=== PATIENT | male | born 1955 | race Caucasian/White ===

== ENCOUNTER 2018-07-15 10:06 | Inpatient (IN) ==
[2018-07-15] MEDS ORDERED: ceFAZolin 2 GM Premix Inj 2 GM/50 ML PIGGYBACK IV.SIG ONE (10:16)
[2018-07-15] MEDS ORDERED: Diphtheria/Tetanus/Pertussis Vaccine Inj 0.5 ML Syringe IM ONE (10:16)
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
[2018-07-15 10:32] LABS: Baso % (Auto) 0.4 % (0.0-2.0); Eos # (Auto) 0.4 th/mm3 (0.0-0.4); Eos % (Auto) 3.7 % (0.0-4.0); Hematocrit 40.5 % (39.0-51.0); Hemoglobin 13.5 gm/dL (13.0-17.0); Lymph # (Auto) 3.3 th/mm3 (1.0-4.8); Lymph % (Auto) 30.7 % (9.0-44.0); Mean Corpuscular HGB Conc 33.2 % (32.0-36.0); Mean Corpuscular Hemoglobin 31.1 pg (27.0-34.0); Mean Corpuscular Volume 93.7 fL (80.0-100.0); Mono # (Auto) 1.2 th/mm3 (0.0-0.9); Mono % (Auto) 10.8 % (0.0-8.0); Neut # (Auto) 5.9 th/mm3 (1.8-7.7); Neut % (Auto) 54.4 % (16.0-70.0); Platelet Count 231 th/mm3 (150-450); Red Blood Count 4.33 mil/mm3 (4.50-5.90); Red Cell Distribution Width 13.5 % (11.6-17.2); White Blood Count 10.8 th/mm3 (4.0-11.0)
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
[2018-07-15 10:50] LABS: Activated Partial Thrombo Time 26.6 sec (24.3-30.1); INR 1.1 Ratio; Prothrombin Time 10.7 sec (9.8-11.6)
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
[2018-07-15 12:11] LABS: Amphetamine Screen,Urine Neg (Neg); Barbiturate Screen,Urine Neg (Neg); Cannabinoid Screen,Urine Neg (Neg); Cocaine Screen,Urine Neg (Neg)
[2018-07-15 12:22] LABS: Opiate Screen,Urine Neg (Neg)
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
[2018-07-15] MEDS ORDERED: levETIRAcetam 500mg/100mL Inj 100 ML IV.SIG SCH (13:00)
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
[2018-07-15] MEDS: Famotidine 20 MG Tablet PO SCH (20:19)
[2018-07-15] MEDS: Docusate Sodium 100 MG Capsule PO SCH (20:22)
[2018-07-15] MEDS: Morphine Sulfate Inj 2 MG/ML Vial IV.PUSH PRN (23:32)
[2018-07-16] MEDS: Morphine Sulfate Inj 2 MG/ML Vial IV.PUSH PRN ×4 (02:15→21:32)
[2018-07-16] MEDS ORDERED: Chlorhexidine Gluconate 2% 1 Pack (2 Cloths) TOPICAL PRN (04:00)
[2018-07-16 04:14] LABS: Baso % (Auto) 0.4 % (0.0-2.0); Eos # (Auto) 0.5 th/mm3 (0.0-0.4); Eos % (Auto) 4.2 % (0.0-4.0); Hematocrit 38.9 % (39.0-51.0); Hemoglobin 12.8 gm/dL (13.0-17.0); Lymph # (Auto) 2.7 th/mm3 (1.0-4.8); Lymph % (Auto) 23.8 % (9.0-44.0); Mean Corpuscular Hemoglobin 30.9 pg (27.0-34.0); Mean Corpuscular Volume 93.4 fL (80.0-100.0); Mean Platelet Volume 9.5 fL (7.0-11.0); Mono # (Auto) 1.4 th/mm3 (0.0-0.9); Mono % (Auto) 11.9 % (0.0-8.0); Neut # (Auto) 6.8 th/mm3 (1.8-7.7); Neut % (Auto) 59.7 % (16.0-70.0); Platelet Count 239 th/mm3 (150-450); Red Blood Count 4.16 mil/mm3 (4.50-5.90); Red Cell Distribution Width 13.3 % (11.6-17.2); White Blood Count 11.4 th/mm3 (4.0-11.0)
[2018-07-16 04:36] LABS: Albumin 3.1 g/dL (3.4-5.0); Anion Gap 6 meq/L (5-15); Aspartate Aminotransferase 27 U/L (15-37); Blood Urea Nitrogen 20 mg/dL (7-18); Calcium 8.3 mg/dL (8.5-10.1); Carbon Dioxide 26.8 meq/L (21.0-32.0); Chloride 108 meq/L (98-107); Glomerular Filtration Rate 84 mL/min (>89); Glucose,Random 105 mg/dL (74-106); Potassium 4.2 meq/L (3.5-5.1); Sodium 141 meq/L (136-145)
[2018-07-16 04:37] LABS: Alanine Aminotransferase 37 U/L (12-78)
[2018-07-16 04:39] LABS: Alkaline Phosphatase 45 U/L (45-117); Total Protein 5.9 g/dL (6.4-8.2)
--- NOTE | 2018-07-16 04:45 | CT ---
EXAM DATE: 07/16/2018 4:38 AM EDT AGE/SEX: 62 years / Male INDICATIONS: Trauma; head injury. CLINICAL DATA: This is the patient's initial encounter. Patient reports that signs and symptoms have been present for 1 day and indicates a pain score of Nonresponsive. MEDICAL/SURGICAL HISTORY: Non-responsive. Non-responsive. RADIATION DOSE: 38.78 CTDI (mGy) COMPARISON: [facility] [place], CT HEAD W/O CONTRAST, 07/15/2018. . TECHNIQUE: CT of the head without contrast. Using automated exposure control and adjustment of the mA and/or kV according to patient size, radiation dose was kept as low as reasonably achievable to ob tain optimal diagnostic quality images. DICOM format image data is available electronically for revi ew and comparison. FINDINGS: Cerebrum: Cerebral atrophy with frontotemporal predominance is again seen. Previously identified pos sible acute hemorrhage in the para midline high frontal region is no longer seen. The ventricles are normal for age. No evidence of midline shift, mass lesion, hemorrhage or acute infarction. No extra axial fluid collections are seen. Posterior Fossa: The cerebellum and brainstem are intact. The 4th ventricle is midline. The cerebe llopontine angle is unremarkable. Extracranial: Marked preorbital and premaxillary soft tissue edema on the left with hematoma seen in the premaxillary region. Skull: The calvaria is intact. No evidence of skull fracture. CONCLUSION: 1. Para midline subarachnoid hemorrhage in the frontal region no longer seen. 2. Severe left-sided anterior facial soft tissue swelling/hematoma. . Electronically signed by: Kyle Trejo MD 07/16/2018 4:44 AM EDT
[2018-07-16] MEDS: Chlorhexidine Gluconate 2% 1 Pack (2 Cloths) TOPICAL SCH (06:10)
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
[2018-07-16] MEDS: Divalproex 500 MG DR Tablet PO SCH (09:45)
[2018-07-16] MEDS: Lurasidone 80 MG Tablet PO SCH (09:45)
[2018-07-16] MEDS: Docusate Sodium 100 MG Capsule PO SCH ×2 (09:45→21:32)
[2018-07-16] MEDS: Famotidine 20 MG Tablet PO SCH ×2 (09:45→21:32)
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
[2018-07-17 03:55] LABS: Baso # (Auto) 0.1 th/mm3 (0.0-0.2); Baso % (Auto) 0.6 % (0.0-2.0); Eos # (Auto) 0.5 th/mm3 (0.0-0.4); Eos % (Auto) 4.8 % (0.0-4.0); Hematocrit 37.6 % (39.0-51.0); Hemoglobin 12.6 gm/dL (13.0-17.0); Lymph # (Auto) 3.3 th/mm3 (1.0-4.8); Lymph % (Auto) 29.7 % (9.0-44.0); Mean Corpuscular HGB Conc 33.6 % (32.0-36.0); Mean Corpuscular Hemoglobin 31.1 pg (27.0-34.0); Mean Corpuscular Volume 92.5 fL (80.0-100.0); Mean Platelet Volume 9.4 fL (7.0-11.0); Mono # (Auto) 1.4 th/mm3 (0.0-0.9); Mono % (Auto) 12.8 % (0.0-8.0); Neut # (Auto) 5.8 th/mm3 (1.8-7.7); Neut % (Auto) 52.1 % (16.0-70.0); Platelet Count 215 th/mm3 (150-450); Red Blood Count 4.06 mil/mm3 (4.50-5.90); Red Cell Distribution Width 13.5 % (11.6-17.2); White Blood Count 11.1 th/mm3 (4.0-11.0)
[2018-07-17 04:15] LABS: Alanine Aminotransferase 30 U/L (12-78); Anion Gap 6 meq/L (5-15); Aspartate Aminotransferase 19 U/L (15-37); Blood Urea Nitrogen 19 mg/dL (7-18); Calcium 8.2 mg/dL (8.5-10.1); Carbon Dioxide 26.5 meq/L (21.0-32.0); Chloride 105 meq/L (98-107); Glomerular Filtration Rate 84 mL/min (>89); Glucose,Random 132 mg/dL (74-106); Sodium 137 meq/L (136-145)
[2018-07-17 04:18] LABS: Alkaline Phosphatase 42 U/L (45-117)
[2018-07-17 04:23] VITALS: O2SAT 99
[2018-07-17] MEDS ORDERED: Acetaminophen 325 MG Tablet PO PRN (05:42)
[2018-07-17] MEDS: Chlorhexidine Gluconate 2% 1 Pack (2 Cloths) TOPICAL SCH (05:54)
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
[2018-07-17] MEDS: Divalproex 500 MG DR Tablet PO SCH (09:28)
[2018-07-17] MEDS: Famotidine 20 MG Tablet PO SCH (09:28)
[2018-07-17] MEDS: Lurasidone 80 MG Tablet PO SCH (09:29)
[2018-07-17] MEDS: Docusate Sodium 100 MG Capsule PO SCH (09:29)
[2018-07-17 09:57] VITALS: PULSE 88
[2018-07-17 10:05] VITALS: BP 139/71; RESP 16; TEMP 98.8
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
== END 2018-07-17 11:57 ==
LOC: NEPI 10:06 → NEDA 10:52 → EDBD 10:52 → N03 12:12
PROVIDERS: ADMIT Surgery; ATTEND Surgery

== ENCOUNTER 2018-07-17 12:05 | Inpatient (IN) ==
[2018-07-17] MEDS ORDERED: Bisacodyl 10 MG Supp RECTAL PRN (14:42)
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
[2018-07-17] MEDS: Lurasidone 80 MG Tablet PO SCH (15:59)
[2018-07-17] MEDS: Divalproex 500 MG DR Tablet PO SCH (15:59)
[2018-07-17] MEDS: Acetaminophen 325 MG Tablet PO PRN ×2 (15:59→20:33)
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
[2018-07-17] MEDS: Senna/Docusate Sodium 8.6/50 MG Tablet PO SCH (20:32)
[2018-07-18] MEDS: Acetaminophen 325 MG Tablet PO PRN ×4 (01:19→21:37)
[2018-07-18] MEDS: Lurasidone 80 MG Tablet PO SCH (08:17)
[2018-07-18] MEDS: Divalproex 500 MG DR Tablet PO SCH (08:17)
[2018-07-18] MEDS: Senna/Docusate Sodium 8.6/50 MG Tablet PO SCH ×2 (08:18→21:37)
[2018-07-18 08:26] LABS: Anion Gap 8 meq/L (5-15); Blood Urea Nitrogen 22 mg/dL (7-18); Calcium 8.9 mg/dL (8.5-10.1); Carbon Dioxide 25.1 meq/L (21.0-32.0); Chloride 106 meq/L (98-107); Glomerular Filtration Rate Greater Than 89 mL/min (>89); Glucose,Random 148 mg/dL (74-106); Sodium 139 meq/L (136-145)
[2018-07-18 08:28] LABS: Cholesterol 90 mg/dL (120-200); Triglycerides 252 mg/dL (42-150)
[2018-07-18 08:31] LABS: Chol/HDL Ratio 2.97 Ratio; HDL Cholesterol 30.3 mg/dL (40.0-60.0); LDL Cholesterol,Calculated 9 mg/dL (0-99)
[2018-07-18] MEDS ORDERED: Sodium Chloride 0.65% Nasal Spray 45 ML Bottle EACH NARE PRN (11:17)
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
[2018-07-18] MEDS ORDERED: Haloperidol 5 MG Tablet PO STA (15:38)
[2018-07-18] MEDS ORDERED: LORazepam 1 MG Tablet PO STA (15:38)
[2018-07-18 16:09] LABS: Hemoglobin A1c 6.5 % (4.3-6.0)
[2018-07-18] MEDS ORDERED: LORazepam 1 MG Tablet PO ONE (16:15)
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
--- NOTE | 2018-07-18 17:38 | P.PNWCN ---
Wound Care Nurse Consult Description: wound consult ordered by for wound management. Communicated with: Candis BERRY. Recommendation: Cleanse bilateral upper extremities with warm soap and water rinse pat dry and leave open to air.May apply triple antibiotic ointment if requested by patient. Additional information: full note top follow Wound/Pressure Injury - Wound Left Ankle Wound Type: Abrasion Left Arm Wound Type: Abrasion Right Arm Wound Type: Abrasion
[2018-07-19] MEDS: Acetaminophen 325 MG Tablet PO PRN ×2 (02:42→08:57)
[2018-07-19] MEDS: Divalproex 500 MG DR Tablet PO SCH (08:58)
[2018-07-19] MEDS: Lurasidone 80 MG Tablet PO SCH (08:58)
[2018-07-19] MEDS: Senna/Docusate Sodium 8.6/50 MG Tablet PO SCH ×2 (08:59→20:23)
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
--- NOTE | 2018-07-19 15:42 | P.PNPSY ---
Subjective Remarks: Patient seen and lubin with nurse Nina, medical student Carolee. Chart reviewed. Patient compliant medication. Patient continues with somewhat labile mood distractible though redirectable. We will check patient's Depakote blood level over in a.m. We are still somewhat vague about his allergy status but need to attempt to contact his brother hopefully get more information Review of Systems All other systems reviewed negative except as stated in HPI Mental Status Examination Appearance: Dirty, Disheveled, Other (Black left eye) Consciousness: Alert Orientation: x4 Motor Activity: Normal gait Speech: Unremarkable Language: Adequate Fund of Knowledge: Adequate Attention and Concentration: Adequate Memory: Unremarkable Mood: Irritable, Manic Affect: Irritable, Other (In appropriate) Thought Process & Associations: Loose associations, Disorganized Thought Content: Bizarre thinking Hallucination Type: None Delusion Type: Bizarre, Paranoid Suicidal Ideation: No Suicidal Plan: No Suicidal Intention: No Homicidal Ideation: No Homicidal Plan: No Homicidal Intention: No Insight: Poor Judgment: Poor Assessment and Plan - Assessment (1) 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 Redirectable. We will be checking Depakote blood level over in a.m. Justification for Continued Inpatient Stay: At this time patient would decompensate a place to a lower level of care Discharge Planning: To be determined (2) Schizoaffective disorder Qualifiers: Schizoaffective disorder type: bipolar Qualified Code(s): F25.0 - Schizoaffective disorder, bipolar type
[2018-07-20] MEDS: Acetaminophen 325 MG Tablet PO PRN ×3 (02:03→16:40)
[2018-07-20] MEDS: Divalproex 500 MG DR Tablet PO SCH (08:19)
[2018-07-20] MEDS: Lurasidone 80 MG Tablet PO SCH (08:19)
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
[2018-07-20] MEDS: Senna/Docusate Sodium 8.6/50 MG Tablet PO SCH ×2 (16:29→20:01)
--- NOTE | 2018-07-20 16:51 | P.PNPSY ---
Subjective Remarks: Reviewed electronic medical records and discussed case with staff. Follow-up was conducted in the hallway with JAMAL Mae present. Is reported that patient refused labs this morning so we will attempt to recollect them in the morning for a valproic acid level. His nurse reports he has been making bizarre statements but compliant with medications. When asked how he feels today patient states "I am in pain". He then becomes extremely bizarre stating that he once had a friend named "Judah mobleys". He then proceeds to say "I am Dr. bonnie hudson, er-er" as he motions with one arm like like an axe. Mental Status Examination Appearance: Dirty, Disheveled, Other (Black left eye) Consciousness: Alert Orientation: x4 Motor Activity: Normal gait Speech: Unremarkable Language: Adequate Fund of Knowledge: Adequate Attention and Concentration: Adequate Memory: Unremarkable Mood: Irritable, Manic Affect: Irritable, Other (In appropriate) Thought Process & Associations: Loose associations, Disorganized Thought Content: Bizarre thinking Hallucination Type: None Delusion Type: Bizarre, Paranoid Suicidal Ideation: No Suicidal Plan: No Suicidal Intention: No Homicidal Ideation: No Homicidal Plan: No Homicidal Intention: No Insight: Poor Judgment: Poor Assessment and Plan - Assessment (1) 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 Continue with current treatment plan. Justification for Continued Inpatient Stay: Moving this patient to a less restrictive environment would likely result in decompensation.
[2018-07-21] MEDS: Acetaminophen 325 MG Tablet PO PRN (04:46)
[2018-07-21] MEDS: Lurasidone 80 MG Tablet PO SCH (08:58)
[2018-07-21] MEDS: Senna/Docusate Sodium 8.6/50 MG Tablet PO SCH ×2 (08:58→20:53)
[2018-07-21] MEDS: Divalproex 500 MG DR Tablet PO SCH (08:58)
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
[2018-07-21] MEDS: Ibuprofen 600 MG Tablet PO PRN ×2 (13:05→20:55)
--- NOTE | 2018-07-21 15:24 | P.PNPSY ---
Subjective Remarks: Reviewed electronic medical records and discussed case with staff. Follow-up was conducted in the common area with JAMAL Chirinos present. Patient is very confused. He states that his brother picked up his scooter. He states that he does not have a good relationship with his brother. He told the nurse to take down the elopement sign because he does not want to any one. Later he stated that [facility] and the [facility] are here. He is easily redirect and very kind. He states he lives in an apt by himself. His left eye is very swollen and painful, but the swelling is resolving. Review of Systems All other systems reviewed negative except as stated in HPI Comments: Eye is extremely swollen. Mental Status Examination Appearance: Appropriate, Dirty, Other (Black left eye) Consciousness: Alert Orientation: x4 Motor Activity: Normal gait Speech: Unremarkable Language: Adequate Fund of Knowledge: Adequate Attention and Concentration: Adequate Memory: Unremarkable Mood: Appropriate Affect: Appropriate Thought Process & Associations: Loose associations, Disorganized Thought Content: Bizarre thinking Hallucination Type: None Delusion Type: Bizarre, Paranoid Suicidal Ideation: No Suicidal Plan: No Suicidal Intention: No Homicidal Ideation: No Homicidal Plan: No Homicidal Intention: No Insight: Poor Judgment: Poor Assessment and Plan - Assessment (1) Schizoaffective disorder Code(s): F25.9 - Schizoaffective disorder, unspecified Status: Acute - Plan Plan: Patient will be reevaluated Sunday by the attending psychiatrist. Continue with current treatment plan. Justification for Continued Inpatient Stay: Moving patient to a less restrictive environment may result in his decompensation. (1) Schizoaffective disorder Qualifiers: Schizoaffective disorder type: bipolar Qualified Code(s): F25.0 - Schizoaffective disorder, bipolar type
[2018-07-22] MEDS: Senna/Docusate Sodium 8.6/50 MG Tablet PO SCH ×2 (08:11→20:13)
[2018-07-22] MEDS: Divalproex 500 MG DR Tablet PO SCH (08:11)
[2018-07-22] MEDS: Ibuprofen 600 MG Tablet PO PRN ×2 (08:12→15:43)
[2018-07-22] MEDS: Lurasidone 80 MG Tablet PO SCH (08:12)
--- NOTE | 2018-07-22 08:55 | P.TTN ---
- Patient Problems Problems: 1. Discharge planning 2. Medication compliance 3. Knowledge deficit 4. Lack of coping skills - Progress Toward Goals Provider Present: Dr. Mona Bhakta (Dr. Bhakta is titrating medications, patient remains psychotic and needs further stabilization.) Psychiatric Counselors Present: Hong Dunn Jr., [facility] (Hong establish contact with the patient's brother regarding discharge plan. Brother Jorge Alberto Weston is advocating for state hospitalization. Brother reports he will be in attendance at [place] act [place] this week to advocate for state hospitalization.) Group Spec/RT/OT/FRAGA Present: PHILLY Davalos (Patient attends select groups , does not tolerate social activities well) - Documentation Teaching Recipient: Patient
--- NOTE | 2018-07-22 15:35 | P.PNPSY ---
Subjective Remarks: Patient seen and lubin with nurse Jasmyn. Patient quite intrusive, intense, with intense eye contact. He is upon review of patient's history of recidivism poor compliance medication I feel he would benefit from long-term placement. We will start state referral packet intrusive with poor hygiene and somewhat malodorous. Depakote level drawn yesterday came back at 20. We will increase Depakote from 1000 mg daily to 500 mg extended release in the morning and 750 mg in the evening. Recheck Depakote blood level over on about 07/25 Review of Systems All other systems reviewed negative except as stated in HPI Mental Status Examination Appearance: Appropriate, Dirty, Other (Black left eye) Consciousness: Alert Orientation: x4 Motor Activity: Normal gait Speech: Unremarkable Language: Adequate Fund of Knowledge: Adequate Attention and Concentration: Adequate Memory: Unremarkable Mood: Appropriate Affect: Appropriate Thought Process & Associations: Loose associations, Disorganized Thought Content: Bizarre thinking Hallucination Type: None Delusion Type: Bizarre, Paranoid Suicidal Ideation: No Suicidal Plan: No Suicidal Intention: No Homicidal Ideation: No Homicidal Plan: No Homicidal Intention: No Insight: Poor Judgment: Poor Assessment and Plan - Assessment (1) 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 He is intense with little insight. Now demanding to go to [place]. Reviewing of patient's behaviors and recidivism I will start the state referral packet Justification for Continued Inpatient Stay: At this time patient would decompensate if placed in a lower level of care Discharge Planning: Start state referral packet (2) Schizoaffective disorder Qualifiers: Schizoaffective disorder type: bipolar Qualified Code(s): F25.0 - Schizoaffective disorder, bipolar type
[2018-07-22] MEDS: Divalproex 250 MG ER Tablet PO SCH (20:13)
[2018-07-23] MEDS: Ibuprofen 600 MG Tablet PO PRN ×2 (03:01→15:37)
[2018-07-23] MEDS: Senna/Docusate Sodium 8.6/50 MG Tablet PO SCH ×2 (09:21→20:33)
[2018-07-23] MEDS: Lurasidone 80 MG Tablet PO SCH (09:21)
[2018-07-23] MEDS: Divalproex 500 MG ER Tablet PO SCH (09:21)
[2018-07-23] MEDS: Acetaminophen 325 MG Tablet PO PRN (09:22)
--- NOTE | 2018-07-23 10:02 | P.PNPSY ---
Subjective Remarks: Patient seen and lubin with nurse and medical student Breonna. Chart reviewed. Patient continues intrusive loud demanding markedly delusional. Does feel like people are conspiring and spying on him. He continues to feel that the hospital beds are transporters similar to those of the TV show [employer]. There is also been communication with patient's brother. Patient has been doing significant frequent intrusive phone calls to him. The brother request phone restrictions. I will do that the place phone restriction as outpatient. I feel also that the Latuda is not very efficient with this gentleman. We will discontinue the Latuda and start patient on in Wood 6 mg daily with possible addition of in Wood sustain a in a few days. Continue to await the Depakote blood level on 07/25 Review of Systems All other systems reviewed negative except as stated in HPI Mental Status Examination Appearance: Appropriate, Dirty, Other (Black left eye) Consciousness: Alert Orientation: x4 Motor Activity: Normal gait Speech: Unremarkable Language: Adequate Fund of Knowledge: Adequate Attention and Concentration: Adequate Memory: Unremarkable Mood: Appropriate Affect: Appropriate Thought Process & Associations: Loose associations, Disorganized Thought Content: Bizarre thinking Hallucination Type: None Delusion Type: Bizarre, Paranoid Suicidal Ideation: No Suicidal Plan: No Suicidal Intention: No Homicidal Ideation: No Homicidal Plan: No Homicidal Intention: No Insight: Poor Judgment: Poor Assessment and Plan - Assessment (1) 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 With a grandiose flavor. She medication adjustments above and phone restrictions above Justification for Continued Inpatient Stay: At this time patient would decompensate a place to a lower level of care Discharge Planning: [facility] packet is being sent (2) Schizoaffective disorder Qualifiers: Schizoaffective disorder type: bipolar Qualified Code(s): F25.0 - Schizoaffective disorder, bipolar type
[2018-07-23] MEDS: Divalproex 250 MG ER Tablet PO SCH (20:33)
[2018-07-24] MEDS: Divalproex 500 MG ER Tablet PO SCH (09:00)
[2018-07-24] MEDS: Senna/Docusate Sodium 8.6/50 MG Tablet PO SCH ×2 (09:01→20:33)
[2018-07-24] MEDS: Ibuprofen 600 MG Tablet PO PRN ×3 (09:15→22:05)
--- NOTE | 2018-07-24 09:22 | P.TTN ---
- Patient Problems Problems: 1. Discharge planning 2. Medication compliance 3. Knowledge deficit 4. Lack of coping skills - Progress Toward Goals Provider Present: Dr. Mona Bhakta (Dr. Bhakta is titrating medications, patient remains psychotic and needs further stabilization. July 24, 2018 patient is agitated, angry and has been referred to the [facility] for further stabilization) Psychiatric Counselors Present: Hong Dunn Jr., [facility] (Hong establish contact with the patient's brother regarding discharge plan. Brother Jorge Alberto Weston is advocating for state hospitalization. Brother reports he will be in attendance at [employer] [facility] this week to advocate for state hospitalization. July 24, 2018 counselor is working with the patient's brother and sister to advocate for further stabilization with a long-term plan of seeking placement at the [facility]. Patient appears to be at rest for self-harm or harm to others if he were to be discharged into the community) Group Spec/RT/OT/FRAGA Present: MAME Hodges (Patient does not attend groups, patient is not appropriate and has difficulty being redirected at this time.), PHILLY Davalos (Patient attends select groups, does not tolerate social activities well) - Documentation Teaching Recipient: Patient
--- NOTE | 2018-07-24 11:24 | P.PNPSY ---
Subjective Remarks: Patient is seen in the lubin with RN. Chart reviewed. Patient compliant medication. Patient continues quite psychotic delusional paranoid intrusive with no insight. He continues to be quite intrusive with his family members needing a telephone restriction order placed yesterday. Though he has no insight into that continues to need to be redirected. Patient scheduled for oneforty tomorrow Review of Systems All other systems reviewed negative except as stated in HPI Mental Status Examination Appearance: Appropriate, Dirty, Other (Black left eye) Consciousness: Alert Orientation: x4 Motor Activity: Normal gait Speech: Unremarkable Language: Adequate Fund of Knowledge: Adequate Attention and Concentration: Adequate Memory: Unremarkable Mood: Appropriate Affect: Appropriate Thought Process & Associations: Loose associations, Disorganized Thought Content: Bizarre thinking Hallucination Type: None Delusion Type: Bizarre, Paranoid Suicidal Ideation: No Suicidal Plan: No Suicidal Intention: No Homicidal Ideation: No Homicidal Plan: No Homicidal Intention: No Insight: Poor Judgment: Poor Assessment and Plan - Assessment (1) 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 Compliant medications. Patient scheduled for oneforty tomorrow Justification for Continued Inpatient Stay: At this time patient would decompensate a place to a lower level of care Discharge Planning: Continue to await word from [facility] referral (2) Schizoaffective disorder Qualifiers: Schizoaffective disorder type: bipolar Qualified Code(s): F25.0 - Schizoaffective disorder, bipolar type
[2018-07-24] MEDS: Acetaminophen 325 MG Tablet PO PRN (14:41)
[2018-07-24] MEDS: Divalproex 250 MG ER Tablet PO SCH (20:33)
[2018-07-25] MEDS: Acetaminophen 325 MG Tablet PO PRN (00:25)
[2018-07-25] MEDS: Ibuprofen 600 MG Tablet PO PRN ×2 (05:56→12:11)
[2018-07-25] MEDS: Divalproex 500 MG ER Tablet PO SCH (08:49)
[2018-07-25] MEDS: Senna/Docusate Sodium 8.6/50 MG Tablet PO SCH ×2 (08:49→21:08)
--- NOTE | 2018-07-25 12:17 | P.PNPSY ---
Subjective Remarks: Patient is seen in [place] today. Patient's brother also testified. Patient was retained by Sarbjit Martínez with brother to be guardian advocate. Patient's anger paranoia and delusions are quite evident in the court setting. He showed marked anger towards his brother with absolutely no insight into his disease. Patient compliant with medications. We will continue to await word on the Depakote blood level. For now continue treatment no change we continue also to await word from [facility] referral Review of Systems All other systems reviewed negative except as stated in HPI Mental Status Examination Appearance: Appropriate, Dirty, Other (Black left eye) Consciousness: Alert Orientation: x4 Motor Activity: Normal gait Speech: Unremarkable Language: Adequate Fund of Knowledge: Inadequate Attention and Concentration: Adequate Memory: Impaired Mood: Angry, Irritable, Manic (Mildly) Affect: Other (Increased range and intensity) Thought Process & Associations: Loose associations, Disorganized Thought Content: Bizarre thinking Hallucination Type: None Delusion Type: Bizarre, Paranoid Suicidal Ideation: No Suicidal Plan: No Suicidal Intention: No Homicidal Ideation: No Homicidal Plan: No Homicidal Intention: No Insight: Poor Judgment: Poor Assessment and Plan - Assessment (1) 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 Justification for Continued Inpatient Stay: At this time patient would decompensate a place to a lower level of care Discharge Planning: to be determined (2) Schizoaffective disorder Qualifiers: Schizoaffective disorder type: bipolar Qualified Code(s): F25.0 - Schizoaffective disorder, bipolar type
[2018-07-25] MEDS: Divalproex 250 MG ER Tablet PO SCH (21:08)
[2018-07-26] MEDS: Acetaminophen 325 MG Tablet PO PRN (05:58)
[2018-07-26] MEDS: Ibuprofen 600 MG Tablet PO PRN ×2 (06:03→16:13)
[2018-07-26] MEDS: Senna/Docusate Sodium 8.6/50 MG Tablet PO SCH ×2 (09:14→20:04)
[2018-07-26] MEDS: Divalproex 500 MG ER Tablet PO SCH (09:14)
--- NOTE | 2018-07-26 12:40 | P.PNPSY ---
Subjective Remarks: Patient seen and lubin with medical student Carolee, chart reviewed, patient compliant medication. Patient continues manic delusional and tense and vigilant. It appears she did not get his Depakote blood level drawn yesterday morning we will order again for tomorrow morning. We will increase his in Wood orally to 9 mg daily. Also cautioned patient to not touch the hematoma under his left lower orbit and the abrasions on the dorsum of his hands. There remains a high instructed to monitor carefully and keep the wounds as clean as possible Review of Systems All other systems reviewed negative except as stated in HPI Mental Status Examination Appearance: Appropriate, Dirty, Other (Black left eye) Consciousness: Alert Orientation: x4 Motor Activity: Normal gait Speech: Unremarkable Language: Adequate Fund of Knowledge: Inadequate Attention and Concentration: Adequate Memory: Impaired Mood: Angry, Irritable, Manic (Mildly) Affect: Other (Increased range and intensity) Thought Process & Associations: Loose associations, Disorganized Thought Content: Bizarre thinking Hallucination Type: None Delusion Type: Bizarre, Paranoid Suicidal Ideation: No Suicidal Plan: No Suicidal Intention: No Homicidal Ideation: No Homicidal Plan: No Homicidal Intention: No Insight: Poor Judgment: Poor Assessment and Plan - Assessment (1) 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 Also showing no insight into the need to not manipulate the abrasions on his hands are of the hematoma on his face Justification for Continued Inpatient Stay: At this time patient would decompensate a place a lower level of care state referral packet has been sent see medication adjustment above Discharge Planning: Continue to await word on state referral packet Request Healthcare Surrogate/Guardian Advocate?: Yes (2) Schizoaffective disorder Qualifiers: Schizoaffective disorder type: bipolar Qualified Code(s): F25.0 - Schizoaffective disorder, bipolar type
[2018-07-26] MEDS: LORazepam 1 MG Tablet PO SCH (19:56)
[2018-07-26] MEDS: Divalproex 250 MG ER Tablet PO SCH (20:04)
[2018-07-27] MEDS: Ibuprofen 600 MG Tablet PO PRN ×2 (00:26→13:09)
[2018-07-27] MEDS: Acetaminophen 325 MG Tablet PO PRN (02:59)
[2018-07-27] MEDS: LORazepam 1 MG Tablet PO SCH ×3 (08:37→17:43)
[2018-07-27] MEDS: Divalproex 500 MG ER Tablet PO SCH (08:39)
[2018-07-27] MEDS: Senna/Docusate Sodium 8.6/50 MG Tablet PO SCH ×2 (13:10→20:39)
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
[2018-07-27] MEDS: Divalproex 250 MG ER Tablet PO SCH (20:39)
[2018-07-28] MEDS: Ibuprofen 600 MG Tablet PO PRN ×2 (09:58→20:29)
[2018-07-28] MEDS: Divalproex 250 MG ER Tablet PO SCH ×3 (10:01→20:28)
[2018-07-28] MEDS: LORazepam 1 MG Tablet PO SCH ×3 (10:01→18:58)
[2018-07-28] MEDS: Senna/Docusate Sodium 8.6/50 MG Tablet PO SCH ×2 (10:08→20:28)
--- NOTE | 2018-07-28 19:07 | P.PNPSY ---
Subjective Remarks: Reviewed electronic medical records and discussed case with staff. Follow-up was conducted in the hallway. Patient remains diffusely confused and intrusive. He continues to perseverate and confabulate. He is difficult to redirect verbally. I hesitate to increase his medications at this time as both his Depakote and in Wood have just recently been increased. Mental Status Examination Appearance: Appropriate, Dirty, Other (Black left eye) Consciousness: Alert Orientation: x4 Motor Activity: Normal gait Speech: Unremarkable Language: Adequate Fund of Knowledge: Inadequate Attention and Concentration: Adequate Memory: Impaired Mood: Angry, Irritable, Manic (Mildly) Affect: Other (Increased range and intensity) Thought Process & Associations: Loose associations, Disorganized Thought Content: Bizarre thinking Hallucination Type: None Delusion Type: Bizarre, Paranoid Suicidal Ideation: No Suicidal Plan: No Suicidal Intention: No Homicidal Ideation: No Homicidal Plan: No Homicidal Intention: No Insight: Poor Judgment: Poor Assessment and Plan - Assessment (1) 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 Continue with current treatment plan. Justification for Continued Inpatient Stay: Moving this patient to a less restrictive environment would likely result in decompensation. Request Healthcare Surrogate/Guardian Advocate?: Yes
[2018-07-29] MEDS: LORazepam 1 MG Tablet PO SCH ×3 (08:51→18:11)
[2018-07-29] MEDS: Divalproex 250 MG ER Tablet PO SCH ×2 (08:51→20:38)
[2018-07-29] MEDS: Senna/Docusate Sodium 8.6/50 MG Tablet PO SCH ×2 (08:51→20:38)
[2018-07-29] MEDS: Ibuprofen 600 MG Tablet PO PRN (13:28)
--- NOTE | 2018-07-29 15:20 | P.PNPSY ---
Subjective Remarks: Patient is seen today in his room with RN and student Carolee, chart reviewed, patient discussed with nurse it appears patient has had 2 incidents of defecating on the floor in the bathroom and in the lubin and then smearing the fecal material on the farrell. Patient is seen today in his room he continues markedly delusional paranoid intense stating he had to do it. At this time I feel the patient's oral antipsychotic and Wood is not really benefiting this gentleman. We will discontinue the in Wood and add Thorazine 50 mg 3 times daily to the regimen Review of Systems All other systems reviewed negative except as stated in HPI Mental Status Examination Appearance: Appropriate, Dirty, Other (Black left eye) Consciousness: Alert Orientation: x4 Motor Activity: Normal gait Speech: Pressured, Rapid Language: Adequate Fund of Knowledge: Inadequate Attention and Concentration: Adequate Memory: Impaired Mood: Angry, Irritable, Manic (Mildly) Affect: Other (Increased range and intensity) Thought Process & Associations: Loose associations, Disorganized Thought Content: Bizarre thinking Hallucination Type: None Delusion Type: Bizarre, Paranoid Suicidal Ideation: No Suicidal Plan: No Suicidal Intention: No Homicidal Ideation: No Homicidal Plan: No Homicidal Intention: No Insight: Poor Judgment: Poor Assessment and Plan - Assessment (1) 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 We will continue to await word from state [facility] Justification for Continued Inpatient Stay: At this time patient would decompensate a place to a lower level of care Discharge Planning: To be determined continue to await state referral Request Healthcare Surrogate/Guardian Advocate?: Yes (2) Schizoaffective disorder Qualifiers: Schizoaffective disorder type: bipolar Qualified Code(s): F25.0 - Schizoaffective disorder, bipolar type
[2018-07-29] MEDS: ChlorproMAZINE 50 MG Tablet PO SCH (18:10)
[2018-07-30] MEDS ORDERED: Chlorpromazine Inj 50 MG/2 ML Ampule IM ONE (00:30)
[2018-07-30] MEDS: ChlorproMAZINE 50 MG Tablet PO SCH ×3 (08:30→17:50)
[2018-07-30] MEDS: LORazepam 1 MG Tablet PO SCH ×3 (08:55→17:49)
[2018-07-30] MEDS: Senna/Docusate Sodium 8.6/50 MG Tablet PO SCH (08:56)
[2018-07-30] MEDS: Divalproex 250 MG ER Tablet PO SCH ×2 (08:56→21:19)
[2018-07-30] MEDS ORDERED: Haloperidol Inj 5 MG/ML Ampul IM ONE (10:59)
[2018-07-30] MEDS ORDERED: Haloperidol Inj 5 MG/ML Ampul ONE (11:06)
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
[2018-07-30] MEDS: Chlorpromazine Inj 50 MG/2 ML Ampule IM SCH (21:47)
[2018-07-31] MEDS: Divalproex 250 MG ER Tablet PO SCH ×2 (08:20→21:20)
[2018-07-31] MEDS: ChlorproMAZINE 50 MG Tablet PO SCH ×3 (08:20→17:53)
[2018-07-31] MEDS: LORazepam 1 MG Tablet PO SCH ×3 (08:21→17:56)
[2018-07-31] MEDS: Chlorpromazine Inj 50 MG/2 ML Ampule IM SCH ×2 (08:27→22:25)
--- NOTE | 2018-07-31 12:40 | P.TTN ---
- Patient Problems Problems: 1. Discharge planning 2. Medication compliance 3. Knowledge deficit 4. Lack of coping skills - Progress Toward Goals Provider Present: Dr. Mona Bhakta (Dr. Bhakta is titrating medications, patient remains psychotic and needs further stabilization. July 24, 2018 patient is agitated, angry and has been referred to the [facility] for further stabilization) Provider Input: 07/31/2018 per doctor, patient continues to display psychotic and noncompliant behavior. Patient still require medication stabilization. Nurse(s) Present: RN Nurse Input: 07/31/2018; per RN patient continues to be inappropriate, with aggressive behavior. Patient is taking selective medication, and require coaching and prompting for compliance. Psychiatric Counselors Present: Hong Dunn Jr., [facility] (Hong establish contact with the patient's brother regarding discharge plan. Brother Jorge Alberto Weston is advocating for state hospitalization. Brother reports he will be in attendance at [place] [facility] this week to advocate for state hospitalization. July 24, 2018 counselor is working with the patient's brother and sister to advocate for further stabilization with a long-term plan of seeking placement at the [facility]. Patient appears to be at rest for self-harm or harm to others if he were to be discharged into the community) Psychiatric Therapist Input: 07/31/2018; counselor has complete state package and patient is a pending state hospital admission when be is available. Group Spec/RT/OT/FRAGA Present: MAME Hodgse (Patient does not attend groups, patient is not appropriate and has difficulty being redirected at this time.), PHILLY Davalos (Patient attends select groups, does not tolerate social activities well) - Documentation Teaching Recipient: Patient
--- NOTE | 2018-07-31 15:46 | P.PNPSY ---
Subjective Remarks: Patient seen in his room with floor staff, patient is showing no insight, processing, or responsibility for his behaviors yesterday related to his throwing of his feces at staff. Chart reviewed. Patient compliant medications. It appears though that the Thorazine might be slowing his behaviors somewhat we will continue the dose no change at this time we will also continue his home restrictions at this time for 1 week Review of Systems All other systems reviewed negative except as stated in HPI Mental Status Examination Appearance: Appropriate, Dirty, Other (Black left eye) Consciousness: Alert Orientation: x4 Motor Activity: Normal gait Speech: Pressured, Rapid Language: Adequate Fund of Knowledge: Inadequate Attention and Concentration: Adequate Memory: Impaired Mood: Angry, Irritable, Manic (Mildly) Affect: Other (Increased range and intensity) Thought Process & Associations: Loose associations, Disorganized Thought Content: Bizarre thinking Hallucination Type: None Delusion Type: Bizarre, Paranoid Suicidal Ideation: No Suicidal Plan: No Suicidal Intention: No Homicidal Ideation: No Homicidal Plan: No Homicidal Intention: No Insight: Poor Judgment: Poor Assessment and Plan - Assessment (1) 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 For now continue treatment no change Justification for Continued Inpatient Stay: At this time patient would decompensate a place to a lower level of care Discharge Planning: Continue to await word from state placement Request Healthcare Surrogate/Guardian Advocate?: Yes (2) Schizoaffective disorder Qualifiers: Schizoaffective disorder type: bipolar Qualified Code(s): F25.0 - Schizoaffective disorder, bipolar type
[2018-08-01] MEDS: Ibuprofen 600 MG Tablet PO PRN (05:54)
[2018-08-01] MEDS: ChlorproMAZINE 50 MG Tablet PO SCH ×3 (08:17→18:27)
[2018-08-01] MEDS: LORazepam 1 MG Tablet PO SCH ×3 (08:17→18:27)
[2018-08-01] MEDS: Divalproex 250 MG ER Tablet PO SCH ×2 (08:18→21:38)
[2018-08-01] MEDS: Chlorpromazine Inj 50 MG/2 ML Ampule IM SCH ×3 (11:59→18:42)
--- NOTE | 2018-08-01 14:42 | P.PNPSY ---
Subjective Remarks: Patient seen in day room with nurse Celena, patient continues markedly disorganized confused delusional paranoid. Chart reviewed. Patient compliant medications. Patient is tolerating the Thorazine without problems. Continue to show absolutely no insight into his disease. We continue to await word from [facility] placement Review of Systems All other systems reviewed negative except as stated in HPI Mental Status Examination Appearance: Appropriate, Dirty, Other (Black left eye) Consciousness: Alert Orientation: x4 Motor Activity: Normal gait Speech: Pressured, Rapid Language: Adequate Fund of Knowledge: Inadequate Attention and Concentration: Adequate Memory: Impaired Mood: Angry, Irritable, Manic (Mildly) Affect: Other (Increased range and intensity) Thought Process & Associations: Loose associations, Disorganized Thought Content: Bizarre thinking Hallucination Type: None Delusion Type: Bizarre, Paranoid Suicidal Ideation: No Suicidal Plan: No Suicidal Intention: No Homicidal Ideation: No Homicidal Plan: No Homicidal Intention: No Insight: Poor Judgment: Poor Assessment and Plan - Assessment (1) 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 Though he is compliant with medications for now continue treatment we continue to await word from [facility] referral Justification for Continued Inpatient Stay: At this time patient would decompensate a place to a lower level of care Discharge Planning: To be determined Request Healthcare Surrogate/Guardian Advocate?: Yes (2) Schizoaffective disorder Qualifiers: Schizoaffective disorder type: bipolar Qualified Code(s): F25.0 - Schizoaffective disorder, bipolar type
[2018-08-01] MEDS: Acetaminophen 325 MG Tablet PO PRN (16:21)
[2018-08-02] MEDS: Ibuprofen 600 MG Tablet PO PRN ×2 (04:49→23:52)
[2018-08-02] MEDS: Acetaminophen 325 MG Tablet PO PRN (05:36)
[2018-08-02] MEDS: Divalproex 250 MG ER Tablet PO SCH ×2 (09:03→21:15)
[2018-08-02] MEDS: LORazepam 1 MG Tablet PO SCH ×3 (09:03→17:45)
[2018-08-02] MEDS: ChlorproMAZINE 50 MG Tablet PO SCH ×3 (09:04→17:45)
[2018-08-02] MEDS: Chlorpromazine Inj 50 MG/2 ML Ampule IM SCH ×3 (11:18→17:45)
--- NOTE | 2018-08-02 13:20 | P.PNPSY ---
Subjective Remarks: Patient is seen in day room with floor staff, nurse Nina, chart reviewed, patient continues intrusive has been making calls for his brother will reinstitute phone restriction for the next week. Patient is quite delusional paranoid. Though he is compliant with medication. For now continue treatment. He can continue to await word from [facility] referral Review of Systems All other systems reviewed negative except as stated in HPI Mental Status Examination Appearance: Appropriate, Dirty, Other (Black left eye) Consciousness: Alert Orientation: x4 Motor Activity: Normal gait Speech: Pressured, Rapid Language: Adequate Fund of Knowledge: Inadequate Attention and Concentration: Adequate Memory: Impaired Mood: Angry, Irritable, Manic (Mildly) Affect: Other (Increased range and intensity) Thought Process & Associations: Loose associations, Disorganized Thought Content: Bizarre thinking Hallucination Type: None Delusion Type: Bizarre, Paranoid Suicidal Ideation: No Suicidal Plan: No Suicidal Intention: No Homicidal Ideation: No Homicidal Plan: No Homicidal Intention: No Insight: Poor Judgment: Poor Assessment and Plan - Assessment (1) 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 He is also quite intrusive I have reinstituted phone restrictions for the next week Justification for Continued Inpatient Stay: At this time patient would decompensate a place to a lower level of care Discharge Planning: Continue to await word [facility] referral Request Healthcare Surrogate/Guardian Advocate?: Yes (2) Schizoaffective disorder Qualifiers: Schizoaffective disorder type: bipolar Qualified Code(s): F25.0 - Schizoaffective disorder, bipolar type
[2018-08-03] MEDS: Ibuprofen 600 MG Tablet PO PRN (06:23)
[2018-08-03] MEDS: ChlorproMAZINE 50 MG Tablet PO SCH ×3 (08:49→18:37)
[2018-08-03] MEDS: Divalproex 250 MG ER Tablet PO SCH ×2 (08:49→20:19)
[2018-08-03] MEDS: LORazepam 1 MG Tablet PO SCH ×3 (08:50→18:37)
[2018-08-03] MEDS: Chlorpromazine Inj 50 MG/2 ML Ampule IM SCH ×3 (09:00→18:00)
--- NOTE | 2018-08-03 18:37 | P.PNPSY ---
Subjective Remarks: Reviewed electronic medical records and discussed case with staff. Follow-up was conducted in the hallway with JAMAL Hartmann present. Patient states that he feels good but has not been sleeping very well. He reports only 3 hours of sleep and then has difficulty going back to sleep. He states that his appetite' s good. But complains that his leg and head are hurting from the medications. He does seem to be somewhat calmer and more organized today. Mental Status Examination Appearance: Appropriate, Dirty, Other (Black left eye) Consciousness: Alert Orientation: x4 Motor Activity: Normal gait Speech: Pressured, Rapid Language: Adequate Fund of Knowledge: Inadequate Attention and Concentration: Adequate Memory: Impaired Mood: Angry, Irritable, Manic (Mildly) Affect: Other (Increased range and intensity) Thought Process & Associations: Loose associations, Disorganized Thought Content: Bizarre thinking Hallucination Type: None Delusion Type: Bizarre, Paranoid Suicidal Ideation: No Suicidal Plan: No Suicidal Intention: No Homicidal Ideation: No Homicidal Plan: No Homicidal Intention: No Insight: Poor Judgment: Poor Assessment and Plan - Assessment (1) 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 Continue with current treatment plan. Justification for Continued Inpatient Stay: Moving this patient to a less restrictive environment would likely result in decompensation. Request Healthcare Surrogate/Guardian Advocate?: Yes
[2018-08-04] MEDS: Ibuprofen 600 MG Tablet PO PRN (05:40)
[2018-08-04] MEDS: ChlorproMAZINE 50 MG Tablet PO SCH ×3 (09:31→17:19)
[2018-08-04] MEDS: LORazepam 1 MG Tablet PO SCH ×3 (09:31→17:18)
[2018-08-04] MEDS: Divalproex 250 MG ER Tablet PO SCH ×2 (09:31→20:14)
[2018-08-04] MEDS: Chlorpromazine Inj 50 MG/2 ML Ampule IM SCH ×3 (09:32→17:20)
--- NOTE | 2018-08-04 16:22 | P.PNPSY ---
Subjective Remarks: Reviewed electronic medical records and discussed case with staff. Follow-up was conducted in patient's room Candis. Patient has written in crayon all over the farrell of his room. He is very disorganized, tangential, loose associations and emotional. One minute he is crying and the next minute his up beat and laughing. He has a fixation on "stealing his brother's child." He states, " I have in [place] travel and [place] from the [facility] [place]." Efforts to re-direct him have been a challenge for the staff. He is eating, sleeping and medication compliant. Review of Systems All other systems reviewed negative except as stated in HPI Mental Status Examination Appearance: Appropriate, Dirty, Other (Black left eye) Consciousness: Alert Orientation: x4 Motor Activity: Normal gait Speech: Pressured, Rapid Language: Adequate Fund of Knowledge: Inadequate Attention and Concentration: Adequate Memory: Impaired Mood: Angry, Irritable, Manic (Mildly) Affect: Other (Increased range and intensity) Thought Process & Associations: Loose associations, Disorganized Thought Content: Bizarre thinking Hallucination Type: None Delusion Type: Bizarre, Paranoid Suicidal Ideation: No Suicidal Plan: No Suicidal Intention: No Homicidal Ideation: No Homicidal Plan: No Homicidal Intention: No Insight: Poor Judgment: Poor Assessment and Plan - Assessment (1) Schizoaffective disorder Code(s): F25.9 - Schizoaffective disorder, unspecified Status: Acute - Plan Plan: Patient will be reevaluated Sunday by the attending psychiatrist. Continue with current treatment plan. Justification for Continued Inpatient Stay: Moving patient to a less restrictive environment may result in his decompensation. Request Healthcare Surrogate/Guardian Advocate?: Yes (1) Schizoaffective disorder Qualifiers: Schizoaffective disorder type: bipolar Qualified Code(s): F25.0 - Schizoaffective disorder, bipolar type
[2018-08-05] MEDS: Ibuprofen 600 MG Tablet PO PRN ×2 (04:41→22:37)
[2018-08-05] MEDS: ChlorproMAZINE 50 MG Tablet PO SCH ×2 (08:24→12:38)
[2018-08-05] MEDS: LORazepam 1 MG Tablet PO SCH ×3 (08:24→17:43)
[2018-08-05] MEDS: Divalproex 250 MG ER Tablet PO SCH ×2 (08:24→20:33)
[2018-08-05] MEDS: Chlorpromazine Inj 50 MG/2 ML Ampule IM SCH ×2 (08:45→12:40)
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
--- NOTE | 2018-08-05 14:00 | P.TTN ---
- Patient Problems Problems: 1. Discharge planning 2. Medication compliance 3. Knowledge deficit 4. Lack of coping skills - Progress Toward Goals Provider Present: Dr. Mona Bhakta (Dr. Bhakta is titrating medications, patient remains psychotic and needs further stabilization. July 24, 2018 patient is agitated, angry and has been referred to the [facility] for further stabilization. August 05, 2018 Dr. Bhakta is titrating medications, Dr. Bhakta seeking transfer to [facility] to await state hospitalization as soon as possible.) Provider Input: 07/31/2018 per doctor, patient continues to display psychotic and noncompliant behavior. Patient still require medication stabilization. Nurse(s) Present: RN Nurse Input: 07/31/2018; per RN patient continues to be inappropriate, with aggressive behavior. Patient is taking selective medication, and require coaching and prompting for compliance. Psychiatric Counselors Present: Hong Dunn Jr., [facility] (Hong establish contact with the patient's brother regarding discharge plan. Brother Jorge Alberto Weston is advocating for state hospitalization. Brother reports he will be in attendance at [facility] this week to advocate for state hospitalization. July 24, 2018 counselor is working with the patient's brother and sister to advocate for further stabilization with a long-term plan of seeking placement at the [facility]. Patient appears to be at rest for self-harm or harm to others if he were to be discharged into the community. Counselor Hong is working with Laine Canela clinical coordinator to have patient transferred to [facility] as soon as possible to await state hospitalization.) Psychiatric Therapist Input: 07/31/2018; counselor has complete state package and patient is a pending [facility] admission when be is available. Group Spec/RT/OT/FRAGA Present: MAME Hodges (Patient does not attend groups, patient is not appropriate and has difficulty being redirected at this time.), PHILLY Davalos (Patient attends select groups, does not tolerate social activities well. Patient attends select groups, is somewhat appropriate , needs redirection.) - Documentation Teaching Recipient: Patient
[2018-08-05] MEDS ORDERED: Chlorpromazine Inj 50 MG/2 ML Ampule IM STA (14:43)
[2018-08-06] MEDS: LORazepam 1 MG Tablet PO SCH ×2 (08:30→12:34)
[2018-08-06] MEDS: Divalproex 250 MG ER Tablet PO SCH ×2 (08:30→21:00)
[2018-08-06] MEDS ORDERED: Chlorpromazine Inj 50 MG/2 ML Ampule IM STA ×2 (10:18→10:47)
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
[2018-08-06] MEDS: Ibuprofen 600 MG Tablet PO PRN (18:55)
[2018-08-07] MEDS: Divalproex 250 MG ER Tablet PO SCH ×2 (09:11→20:17)
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
[2018-08-08] MEDS: Ibuprofen 600 MG Tablet PO PRN ×2 (03:38→13:19)
[2018-08-08] MEDS: Divalproex 250 MG ER Tablet PO SCH ×2 (08:57→22:18)
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
[2018-08-09] MEDS: Ibuprofen 600 MG Tablet PO PRN ×2 (01:52→10:30)
[2018-08-09] MEDS: ChlorproMAZINE 50 MG Tablet PO SCH ×2 (08:55→16:13)
[2018-08-09] MEDS: Divalproex 250 MG ER Tablet PO SCH ×2 (08:56→22:06)
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
[2018-08-10] MEDS: Divalproex 500 MG ER Tablet PO SCH (09:03)
[2018-08-10] MEDS: ChlorproMAZINE 50 MG Tablet PO SCH ×3 (09:03→16:46)
--- NOTE | 2018-08-10 15:23 | P.PNPSY ---
Subjective Remarks: Pt seen and discussed with staff. Chart reviewed. He has been intrusive, demanding and delusional on the unit, but has been in better behavioral control today. No fecal smearing today. Mental Status Examination Appearance: Appropriate, Dirty, Other (Black left eye) Consciousness: Alert Orientation: x4 Motor Activity: Normal gait Speech: Pressured, Rapid Language: Adequate Fund of Knowledge: Inadequate Attention and Concentration: Adequate Memory: Impaired Mood: Angry, Irritable, Manic (Mildly) Affect: Other (Increased range and intensity) Thought Process & Associations: Loose associations, Disorganized Thought Content: Bizarre thinking Hallucination Type: None Delusion Type: Bizarre, Paranoid Suicidal Ideation: No Suicidal Plan: No Suicidal Intention: No Homicidal Ideation: No Homicidal Plan: No Homicidal Intention: No Insight: Poor Judgment: Poor Assessment and Plan - Assessment (1) 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 Code(s): S06.9X9S - Unspecified intracranial injury with loss of consciousness of unspecified duration, sequela; F02.81 - Dementia in other diseases classified elsewhere with behavioral disturbance Status: Acute (2) Schizoaffective disorder Code(s): F25.9 - Schizoaffective disorder, unspecified Status: Acute - Plan Plan: continue current tx plan Justification for Continued Inpatient Stay: impairments in reality testing Request Healthcare Surrogate/Guardian Advocate?: Yes (2) Schizoaffective disorder Qualifiers: Schizoaffective disorder type: bipolar Qualified Code(s): F25.0 - Schizoaffective disorder, bipolar type
[2018-08-10] MEDS: Ibuprofen 600 MG Tablet PO PRN (18:43)
[2018-08-10] MEDS: Divalproex 250 MG ER Tablet PO SCH (21:51)
[2018-08-11] MEDS: ChlorproMAZINE 50 MG Tablet PO SCH ×2 (08:43→15:20)
[2018-08-11] MEDS: Divalproex 500 MG ER Tablet PO SCH (08:44)
--- NOTE | 2018-08-11 11:14 | P.PNPSY ---
Subjective Remarks: Chart reviewed and discussed with nursing staff. Patient in common area. Patient is liable and quiet. He states that he is unsteady on his feet from the Thorazine. He is asking for Latuda. He states that he is feeling better. Nursing staff report that he is calmer and more cooperative. He continues to be disorganized and tangential. Denies any SI/HI. Review of Systems All other systems reviewed negative except as stated in HPI Mental Status Examination Appearance: Appropriate, Dirty, Other (Black left eye) Consciousness: Alert Orientation: x4 Motor Activity: Normal gait Speech: Pressured, Rapid Language: Adequate Fund of Knowledge: Inadequate Attention and Concentration: Adequate Memory: Impaired Mood: Sad, Manic (Mildly) Affect: Other (Increased range and intensity) Thought Process & Associations: Loose associations, Disorganized Thought Content: Bizarre thinking Hallucination Type: None Delusion Type: Bizarre, Paranoid Suicidal Ideation: No Suicidal Plan: No Suicidal Intention: No Homicidal Ideation: No Homicidal Plan: No Homicidal Intention: No Insight: Poor Judgment: Poor Assessment and Plan - Assessment (1) Schizoaffective disorder Code(s): F25.9 - Schizoaffective disorder, unspecified Status: Acute - Plan Plan: continue current tx plan Justification for Continued Inpatient Stay: Moving patient to a less restrictive environment may result in his decompensation. Request Healthcare Surrogate/Guardian Advocate?: Yes (1) Schizoaffective disorder Qualifiers: Schizoaffective disorder type: bipolar Qualified Code(s): F25.0 - Schizoaffective disorder, bipolar type
[2018-08-11] MEDS: Ibuprofen 600 MG Tablet PO PRN (18:00)
[2018-08-11] MEDS: Divalproex 250 MG ER Tablet PO SCH (20:02)
[2018-08-12] MEDS: Ibuprofen 600 MG Tablet PO PRN ×2 (06:01→22:31)
[2018-08-12] MEDS: ChlorproMAZINE 50 MG Tablet PO SCH ×2 (08:43→15:29)
[2018-08-12] MEDS: Divalproex 500 MG ER Tablet PO SCH (08:43)
--- NOTE | 2018-08-12 13:58 | P.PNPSY ---
Subjective Remarks: Patient is seen. EMR reviewed. Seen with nurse Candis in his room. He remains hyperverbal. He becomes easily agitated when speaking of his brother " wanting me to be in the hospital for no reason". Patient has remained in behavioral control for most part. He is wanting to have Buspirone added to his medications as he has had it in the past. Last VPA level 78. Review of Systems All other systems reviewed negative except as stated in HPI Mental Status Examination Appearance: Appropriate, Dirty, Other (Black left eye) Consciousness: Alert Orientation: x4 Motor Activity: Normal gait Speech: Pressured, Rapid Language: Adequate Fund of Knowledge: Inadequate Attention and Concentration: Adequate, Easily distracted Memory: Impaired Mood: Sad, Anxious, Irritable, Manic (Mildly) Affect: Other (Increased range and intensity) Thought Process & Associations: Loose associations, Disorganized Thought Content: Bizarre thinking Hallucination Type: None Delusion Type: Bizarre, Paranoid Suicidal Ideation: No Suicidal Plan: No Suicidal Intention: No Homicidal Ideation: No Homicidal Plan: No Homicidal Intention: No Insight: Poor Judgment: Poor Assessment and Plan - Assessment (1) 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 Request Healthcare Surrogate/Guardian Advocate?: Yes (2) Schizoaffective disorder Qualifiers: Schizoaffective disorder type: bipolar Qualified Code(s): F25.0 - Schizoaffective disorder, bipolar type
[2018-08-12 16:29] LABS: Baso % (Auto) 0.4 % (0.0-2.0); Eos # (Auto) 0.3 th/mm3 (0.0-0.4); Eos % (Auto) 2.7 % (0.0-4.0); Hematocrit 39.4 % (39.0-51.0); Hemoglobin 13.5 gm/dL (13.0-17.0); Lymph # (Auto) 3.1 th/mm3 (1.0-4.8); Lymph % (Auto) 32.8 % (9.0-44.0); Mean Corpuscular HGB Conc 34.3 % (32.0-36.0); Mean Corpuscular Hemoglobin 30.9 pg (27.0-34.0); Mean Corpuscular Volume 90.1 fL (80.0-100.0); Mono # (Auto) 0.9 th/mm3 (0.0-0.9); Mono % (Auto) 9.2 % (0.0-8.0); Neut # (Auto) 5.1 th/mm3 (1.8-7.7); Neut % (Auto) 54.9 % (16.0-70.0); Platelet Count 179 th/mm3 (150-450); Red Blood Count 4.37 mil/mm3 (4.50-5.90); Red Cell Distribution Width 13.4 % (11.6-17.2); White Blood Count 9.4 th/mm3 (4.0-11.0)
[2018-08-12 16:52] LABS: Alanine Aminotransferase 23 U/L (12-78); Albumin 3.3 g/dL (3.4-5.0); Anion Gap 7 meq/L (5-15); Aspartate Aminotransferase 13 U/L (15-37); Blood Urea Nitrogen 23 mg/dL (7-18); Calcium 8.5 mg/dL (8.5-10.1); Chloride 107 meq/L (98-107); Glomerular Filtration Rate 74 mL/min (>89); Glucose,Random 121 mg/dL (74-106); Potassium 4.2 meq/L (3.5-5.1); Sodium 140 meq/L (136-145)
[2018-08-12 16:55] LABS: Alkaline Phosphatase 60 U/L (45-117); Total Protein 6.6 g/dL (6.4-8.2)
[2018-08-12] MEDS: Divalproex 250 MG ER Tablet PO SCH (20:32)
[2018-08-13] MEDS: ChlorproMAZINE 50 MG Tablet PO SCH ×2 (08:17→15:19)
[2018-08-13] MEDS: Divalproex 500 MG ER Tablet PO SCH (08:17)
--- NOTE | 2018-08-13 10:40 | P.TTN ---
- Patient Problems Problems: 1. Discharge planning 2. Medication compliance 3. Knowledge deficit 4. Lack of coping skills - Progress Toward Goals Provider Present: Dr. Mona Bhakta (Dr. Bhakta is titrating medications, patient remains psychotic and needs further stabilization. July 24, 2018 patient is agitated, angry and has been referred to the [facility] for further stabilization. August 05, 2018 Dr. Bhakta is titrating medications, Dr. Bhakta seeking transfer to [facility] to await state hospitalization as soon as possible.), Dr. Jeffery Cody (Patient is new to Dr. Cody, patient needs to be transferred to [facility] as soon as possible to await state hospitalization) Provider Input: 07/31/2018 per doctor, patient continues to display psychotic and noncompliant behavior. Patient still require medication stabilization. Nurse(s) Present: RN Nurse Input: 07/31/2018; per RN patient continues to be inappropriate, with aggressive behavior. Patient is taking selective medication, and require coaching and prompting for compliance. Psychiatric Counselors Present: Hong Dunn Jr., [facility] (Hong establish contact with the patient's brother regarding discharge plan. Brother Jorge Alberto Weston is advocating for [facility] hospitalization. Brother reports he will be in attendance at [facility] court this week to advocate for state hospitalization. July 24, 2018 counselor is working with the patient's brother and sister to advocate for further stabilization with a long-term plan of seeking placement at the [facility]. Patient appears to be at rest for self-harm or harm to others if he were to be discharged into the community. Counselor Hong is working with Laine Canela clinical coordinator to have patient transferred to [facility] as soon as possible to await state hospitalization. August 13, 2018 Counselor will inquire with [facility] and assist with a transfer to [facility] to await [facility] hospitalization as soon as possible.) Psychiatric Therapist Input: 07/31/2018; counselor has complete state package and patient is a pending [facility] hospital admission when be is available. Group Spec/RT/OT/FRAGA Present: MAME Hodges (Patient does not attend groups, patient is not appropriate and has difficulty being redirected at this time.), PHILLY Davalos (Patient attends select groups, does not tolerate social activities well. Patient attends select groups, is somewhat appropriate , needs redirection. August 13, 2018 patient attends select groups, often inappropriate, needs redirection.) - Documentation Teaching Recipient: Patient
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
[2018-08-13] MEDS: Divalproex 250 MG ER Tablet PO SCH (20:51)
[2018-08-14] MEDS: Divalproex 500 MG ER Tablet PO SCH (08:28)
[2018-08-14] MEDS: ChlorproMAZINE 50 MG Tablet PO SCH ×2 (08:28→18:01)
--- NOTE | 2018-08-14 11:53 | P.PNPSY ---
Subjective Remarks: Patient seen and examined with nurse in coverage for Dr. Bhakta. Chart reviewed. Case discussed with nursing staff. Patient noted to be irritable and bizarre per nursing. On my examination today the patient says "my gums are bleeding, what is Next toe tag." He further says "as Srini once said, I can takes no more." He tells me that he feels like a dog on television. His affect is fairly labile. He denies any homicidal ideation. No reported side effects from medications. No physical complaints. Vital Signs Temp Pulse Resp BP 08/13/18 16:22 97.3 F L 87 18 122/71 Intake and Output 08/13/18 08/14/18 08/14/18 22:59 06:59 14:59 Other: Date of Last Bowel Movement 08/09/18 Laboratory Results - last 24 hr 08/14/18 06:31 Valproic Acid 84 Labs reviewed. Depakote level within the therapeutic range. Review of Systems All other systems reviewed negative except as stated in HPI (Limitation: Leti) Mental Status Examination Appearance: Appropriate Consciousness: Alert Orientation: Person, Place (At least) Motor Activity: Normal gait Speech: Rapid Language: Other (Rambling) Fund of Knowledge: Inadequate Attention and Concentration: Easily distracted Memory: Impaired Mood: Anxious, Manic Affect: Anxious Thought Process & Associations: Loose associations, Tangential (Ongoing) Thought Content: Bizarre thinking Hallucination Type: None Delusion Type: Bizarre, Paranoid Suicidal Ideation: No Homicidal Ideation: No Homicidal Plan: No Homicidal Intention: No Insight: Poor Judgment: Poor Assessment and Plan - Assessment (1) 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 I will titrate his daytime doses of Thorazine to 75 mg morning and afternoon. Continue other psychotropics as ordered. Monitor for worsening of orthostasis. Continue other medications and care as ordered. Justification for Continued Inpatient Stay: Medication changes. Impairment in reality construction. High risk for decompensation in less restrictive environment. Discharge Planning: [facility] referral. Request Healthcare Surrogate/Guardian Advocate?: Yes (2) Schizoaffective disorder Qualifiers: Schizoaffective disorder type: bipolar Qualified Code(s): F25.0 - Schizoaffective disorder, bipolar type
[2018-08-14] MEDS: Divalproex 250 MG ER Tablet PO SCH (20:19)
[2018-08-15] MEDS: Divalproex 500 MG ER Tablet PO SCH (08:22)
[2018-08-15] MEDS: ChlorproMAZINE 50 MG Tablet PO SCH ×2 (08:22→17:19)
--- NOTE | 2018-08-15 10:47 | P.PNPSY ---
Subjective Remarks: Patient seen and examined with nurse. Chart reviewed. Case discussed with nursing staff who reports patient remains fairly labile. On my examination today, the patient seems more or less unchanged today. He is perhaps very slightly calmer today versus yesterday with adjustment in Thorazine. He is perseverative on horoscopes. No SI or HI voiced. No worsening of dizziness with titration of Thorazine per patient report, and the patient notes "I can handle the dizziness." No other side effects or physical complaints. Intake and Output 08/15/18 08/15/18 08/15/18 06:59 14:59 22:59 Other: Weight 89.2 kg Labs reviewed. Review of Systems All other systems reviewed negative except as stated in HPI (Limitation: Leti) Mental Status Examination Appearance: Appropriate Consciousness: Alert Orientation: Person, Place (At least) Motor Activity: Other (No motoric abnormalities noted) Speech: Rapid (Perhaps a little less so today) Language: Other (Rambling) Fund of Knowledge: Inadequate Attention and Concentration: Easily distracted Memory: Impaired Mood: Manic Affect: Blunt Thought Process & Associations: Loose associations, Tangential (Ongoing) Thought Content: Bizarre thinking Hallucination Type: None Delusion Type: Bizarre, Paranoid Suicidal Ideation: No Homicidal Ideation: No Insight: Poor Judgment: Poor Assessment and Plan - Assessment (1) 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 Check a set of orthostatic vital signs. Continue to monitor on the inpatient unit. Continue other medications and care as ordered. Justification for Continued Inpatient Stay: High risk for decompensation in less restrictive environment. Discharge Planning: Pending psychiatric stabilization. Request Healthcare Surrogate/Guardian Advocate?: Yes (2) Schizoaffective disorder Qualifiers: Schizoaffective disorder type: bipolar Qualified Code(s): F25.0 - Schizoaffective disorder, bipolar type
[2018-08-15] MEDS: Divalproex 250 MG ER Tablet PO SCH (20:42)
[2018-08-16] MEDS: Divalproex 500 MG ER Tablet PO SCH (08:48)
[2018-08-16] MEDS: ChlorproMAZINE 50 MG Tablet PO SCH ×2 (08:48→16:21)
--- NOTE | 2018-08-16 08:51 | P.TTN ---
- Patient Problems Problems: 1. Discharge planning 2. Medication compliance 3. Knowledge deficit 4. Lack of coping skills - Progress Toward Goals Provider Present: Dr. Mona Bhakta (Dr. Bhakta is titrating medications, patient remains psychotic and needs further stabilization. July 24, 2018 patient is agitated, angry and has been referred to the [facility] for further stabilization. August 05, 2018 Dr. Bhakta is titrating medications, Dr. Bhakta seeking transfer to [facility] to await [facility] hospitalization as soon as possible.), Dr. Jeffery Cody (Patient is new to Dr. Cody, patient needs to be transferred to [facility] as soon as possible to await [facility] hospitalization. Dr. Cody is increasing medication Thorazine, patient remains for further stabilization and is awaiting [facility] hospitalization.) Provider Input: 07/31/2018 per doctor, patient continues to display psychotic and noncompliant behavior. Patient still require medication stabilization. Nurse(s) Present: RN Nurse Input: 07/31/2018; per RN patient continues to be inappropriate, with aggressive behavior. Patient is taking selective medication, and require coaching and prompting for compliance. Psychiatric Counselors Present: Hong Dunn Jr., [facility] (Hong establish contact with the patient's brother regarding discharge plan. Brother Jorge Alberto Weston is advocating for state hospitalization. Brother reports he will be in attendance at [facility] court this week to advocate for state hospitalization. July 24, 2018 counselor is working with the patient's brother and sister to advocate for further stabilization with a long-term plan of seeking placement at the [facility]. Patient appears to be at rest for self-harm or harm to others if he were to be discharged into the community. Counselor Hong is working with Laine Canela clinical coordinator to have patient transferred to [facility] as soon as possible to await [facility] hospitalization. August 13, 2018 Counselor will inquire with [facility] and assist with a transfer to [facility] to await [facility] hospitalization as soon as possible. Patient appears to be improving as evidenced by being less intrusive and more appropriate in conversation. Counselor will establish contact with [facility] to inquire about the possibility of transfer to await [facility] hospitalization.) Psychiatric Therapist Input: 07/31/2018; counselor has complete state package and patient is a pending state hospital admission when be is available. Group Spec/RT/OT/FRAGA Present: MAME Hodges (Patient does not attend groups, patient is not appropriate and has difficulty being redirected at this time. August 16, 2018 patient attends select groups), PHILLY Davalos ( Patient attends select groups, does not tolerate social activities well. Patient attends select groups, is somewhat appropriate, needs redirection. August 13, 2018 patient attends select groups, often inappropriate, needs redirection.) - Documentation Teaching Recipient: Patient
--- NOTE | 2018-08-16 09:57 | P.PNPSY ---
Subjective Remarks: Patient seen and examined with counselor. Chart reviewed. Case discussed with nursing staff. Patient complaining of some constipation, requesting stool softener, which I have ordered. Case discussed in treatment team. On my examination today, the patient presents as somewhat behaviorally disinhibited. He tells me that he is "a little fart happy" and also "stupid in love with more women than Javier. I believe I have the tam to Javier's tomb." He then goes on to describe this tam in great detail. No reported sexual acting out per nursing. No side effects from medications besides some ongoing dizziness. Repeat orthostatics did not reveal significant orthostasis by either blood pressure or heart rate today. Besides the constipation with associated flatus, no physical complaints. Vital Signs Pulse Resp BP 08/16/18 08:00 68 18 154/68 H Labs reviewed. No new labs. Review of Systems All other systems reviewed negative except as stated in HPI (Limitation: Poor historian) Mental Status Examination Appearance: Appropriate Consciousness: Alert Orientation: Person, Place (At least) Motor Activity: Other (No abnormal motor movements noted) Speech: Unremarkable Language: Other (Remains fairly rambling) Fund of Knowledge: Inadequate Attention and Concentration: Easily distracted Memory: Impaired Mood: Manic Affect: Blunt Thought Process & Associations: Loose associations, Tangential (Ongoing) Thought Content: Bizarre thinking Hallucination Type: None Delusion Type: Bizarre, Paranoid Suicidal Ideation: No Homicidal Ideation: No Insight: Poor Judgment: Poor Assessment and Plan - Assessment (1) 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 Continue other psychotropics as ordered. Continue to monitor on the high acuity unit. Continue other medications and care as ordered. Justification for Continued Inpatient Stay: Risk for decompensation in less restrictive environment. Medication changes. Impairment in reality construction. Discharge Planning: Counselor informs me that patient is #44 on the [facility] wait list. Request Healthcare Surrogate/Guardian Advocate?: Yes (2) Schizoaffective disorder Qualifiers: Schizoaffective disorder type: bipolar Qualified Code(s): F25.0 - Schizoaffective disorder, bipolar type
[2018-08-16] MEDS: Docusate Sodium 100 MG Capsule PO SCH ×2 (11:56→21:41)
[2018-08-16] MEDS: Divalproex 250 MG ER Tablet PO SCH (21:41)
[2018-08-17] MEDS: ChlorproMAZINE 50 MG Tablet PO SCH ×2 (08:31→15:15)
[2018-08-17] MEDS: Docusate Sodium 100 MG Capsule PO SCH ×2 (08:31→20:40)
[2018-08-17] MEDS: Divalproex 500 MG ER Tablet PO SCH (08:31)
--- NOTE | 2018-08-17 09:32 | P.PNPSY ---
Subjective Remarks: Patient seen and examined with nurse. Chart reviewed. Case discussed with nursing staff who notes patient remains fairly labile. On my examination today , the patient continues to display affective lability. He becomes quite tearful when discussing redecorating his house saying "I can handle redecorating my house. The house is haunted." Denies side effects from medications. He requests that we "keep upping the Thorazine." No physical complaints. Patient refused vital signs. Labs reviewed. No new labs. Review of Systems All other systems reviewed negative except as stated in HPI (Limitation: Poor historian) Mental Status Examination Appearance: Appropriate Consciousness: Alert Orientation: Person, Place (At least) Motor Activity: Other (No motoric abnormalities noted) Speech: Unremarkable Language: Other (Rambling) Fund of Knowledge: Inadequate Attention and Concentration: Easily distracted Memory: Impaired Mood: Manic Affect: Blunt Thought Process & Associations: Loose associations, Other (Ongoing tangentiality ) Thought Content: Bizarre thinking Hallucination Type: None Delusion Type: Bizarre Suicidal Ideation: No Homicidal Ideation: No Insight: Poor Judgment: Poor Assessment and Plan - Assessment (1) 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 Follow up on orthostatic vital signs ordered for later today if patient will allow these to be performed. So long as the patient is not experiencing significant orthostasis, could consider titrating Thorazine tomorrow. Continue to monitor on high acuity unit. Continue other medications and care as ordered. Justification for Continued Inpatient Stay: Impairment in reality construction. High risk for decompensation in less restrictive environment. Discharge Planning: [facility] referral. Request Healthcare Surrogate/Guardian Advocate?: Yes (2) Schizoaffective disorder Qualifiers: Schizoaffective disorder type: bipolar Qualified Code(s): F25.0 - Schizoaffective disorder, bipolar type
[2018-08-17] MEDS: Divalproex 250 MG ER Tablet PO SCH (20:41)
[2018-08-18] MEDS: Docusate Sodium 100 MG Capsule PO SCH ×2 (08:31→21:00)
[2018-08-18] MEDS: ChlorproMAZINE 50 MG Tablet PO SCH ×2 (08:31→15:55)
[2018-08-18] MEDS: Divalproex 500 MG ER Tablet PO SCH (08:31)
--- NOTE | 2018-08-18 11:14 | P.PNPSY ---
Subjective Remarks: Chart reviewed and discussed with nursing staff. Patient is very emotional today. He is experiencing crying spells. He voices frustration with his family and feels like they plan to take everything away from him. He is easily redirected. Denies and SI/HI. Denies AVH. He has a red area near his left breast that looks infected. He states that he had a pimple that he has been trying to manage and now the area is all red. Will place a hospitalist consult for assessment and treatment. Patient is eating and sleeping well. Patient states that he feels "shakey on his feet," will leave the Thorazine at the same dose and reassess tomorrow. Review of Systems All other systems reviewed negative except as stated in HPI Mental Status Examination Appearance: Appropriate Consciousness: Alert Orientation: Person, Place (At least) Motor Activity: Other (No motoric abnormalities noted) Speech: Unremarkable Language: Other (Rambling) Fund of Knowledge: Inadequate Attention and Concentration: Easily distracted Memory: Impaired Mood: Manic Affect: Blunt Thought Process & Associations: Loose associations, Other (Ongoing tangentiality ) Thought Content: Bizarre thinking Hallucination Type: None Delusion Type: Bizarre Suicidal Ideation: No Suicidal Plan: No Suicidal Intention: No Homicidal Ideation: No Homicidal Plan: No Homicidal Intention: No Insight: Poor Judgment: Poor Assessment and Plan - Assessment (1) Schizoaffective disorder Code(s): F25.9 - Schizoaffective disorder, unspecified Status: Acute (2) 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 Justification for Continued Inpatient Stay: Moving patient to less restrictive environment may result in his decompensation. Request Healthcare Surrogate/Guardian Advocate?: Yes (1) Schizoaffective disorder Qualifiers: Schizoaffective disorder type: bipolar Qualified Code(s): F25.0 - Schizoaffective disorder, bipolar type
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
[2018-08-18] MEDS: Divalproex 250 MG ER Tablet PO SCH (21:00)
[2018-08-19] MEDS: Divalproex 500 MG ER Tablet PO SCH (08:39)
[2018-08-19] MEDS: ChlorproMAZINE 50 MG Tablet PO SCH ×2 (08:39→16:00)
[2018-08-19] MEDS: Docusate Sodium 100 MG Capsule PO SCH ×2 (08:40→20:30)
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
--- NOTE | 2018-08-19 12:35 | P.PNPSY ---
Subjective Remarks: Patient seen and examined with nurse. Chart reviewed. Case discussed with nursing staff who reports patient remains somewhat paranoid. On my examination today, the patient is irritable and dysphoric. He is not interested in extended interview today and dismisses us after a brief interaction. No evident side effects from medications. No physical complaints. Vital Signs Temp Pulse Resp BP Pulse Ox 08/19/18 06:00 98.0 F 63 20 102/55 L 95 Intake and Output 08/19/18 08/19/18 08/19/18 06:59 14:59 22:59 Intake Total 240 / 240 Balance 240 / 240 Intake: Oral 240 / 240 Other: Weight 83.2 kg Labs reviewed. No new labs. Review of Systems All other systems reviewed negative except as stated in HPI (Limitation: Psychosis) Mental Status Examination Appearance: Appropriate Consciousness: Alert Orientation: Person, Place (At least) Motor Activity: Other (No abnormal motor movements noted) Speech: Unremarkable Language: Other (Rambling) Fund of Knowledge: Inadequate Attention and Concentration: Easily distracted Memory: Impaired Mood: Irritable Affect: Irritable, Other (Dysphoric) Thought Process & Associations: Tangential Thought Content: Bizarre thinking, Delusional Hallucination Type: None Delusion Type: Bizarre, Paranoid Suicidal Ideation: No Homicidal Ideation: No Insight: Poor Judgment: Poor Assessment and Plan - Assessment (1) 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 To consider further titration of the patient's Thorazine. Hospitalist input noted and appreciated. I see hospitalist recommendation for possible initiation of Prozac, but given that patient's mood is not yet stabilized I would be fearful of exacerbating mood instability with initiation of SSRI. I will defer to Dr. Bhakta when he returns. Continue to monitor on high acuity unit. Continue other medications and care as ordered. Justification for Continued Inpatient Stay: Impairment in reality construction. High risk for decompensation in less restrictive environment. Discharge Planning: [facility] referral Request Healthcare Surrogate/Guardian Advocate?: Yes (2) Schizoaffective disorder Qualifiers: Schizoaffective disorder type: bipolar Qualified Code(s): F25.0 - Schizoaffective disorder, bipolar type
[2018-08-19] MEDS: Aluminum/Magnesium/Simethacone Susp 30 ML UDC PO PRN (19:50)
[2018-08-19] MEDS: Divalproex 250 MG ER Tablet PO SCH (20:30)
[2018-08-20] MEDS: Divalproex 500 MG ER Tablet PO SCH (08:24)
[2018-08-20] MEDS: ChlorproMAZINE 50 MG Tablet PO SCH ×2 (08:24→15:31)
[2018-08-20] MEDS: Docusate Sodium 100 MG Capsule PO SCH ×2 (08:24→20:36)
--- NOTE | 2018-08-20 11:19 | P.PNPSY ---
Subjective Remarks: Patient seen and examined with nurse and counselor. Chart reviewed. Case discussed with nursing staff. Nurse notes that patient had some clarity this morning. Case discussed in treatment team. On my examination today, the patient remains paranoid regarding his brother, although he does seem a little less certain regarding this paranoia. He is less dysphoric and more appropriate in our interaction today. No reported side effects from medications. No acute physical complaints. Intake and Output 08/19/18 08/20/18 08/20/18 22:59 06:59 14:59 Other: Date of Last Bowel Movement 08/15/18 Labs reviewed. No new labs. Review of Systems All other systems reviewed negative except as stated in HPI (Limitation: Leti) Mental Status Examination Appearance: Appropriate Consciousness: Alert Orientation: Person, Place (At least) Motor Activity: Other (No motoric abnormalities noted) Speech: Unremarkable Language: Other (A little more focused today) Fund of Knowledge: Inadequate Attention and Concentration: Easily distracted Memory: Impaired Mood: Appropriate Affect: Blunt Thought Process & Associations: Tangential Thought Content: Bizarre thinking, Delusional Hallucination Type: None Delusion Type: Bizarre, Paranoid Suicidal Ideation: No Homicidal Ideation: No Insight: Poor Judgment: Poor Assessment and Plan - Assessment (1) 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 Continue to monitor on the inpatient unit. Continue other medications and care as ordered. Justification for Continued Inpatient Stay: Risk for decompensation in less restrictive environment. Discharge Planning: [facility]. Request Healthcare Surrogate/Guardian Advocate?: Yes (2) Schizoaffective disorder Qualifiers: Schizoaffective disorder type: bipolar Qualified Code(s): F25.0 - Schizoaffective disorder, bipolar type
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
--- NOTE | 2018-08-20 15:39 | P.TTN ---
- Patient Problems Problems: 1. Discharge planning 2. Medication compliance 3. Knowledge deficit 4. Lack of coping skills - Progress Toward Goals Provider Present: Dr. Mona Bhakta (Dr. Bhakta is titrating medications, patient remains psychotic and needs further stabilization. July 24, 2018 patient is agitated, angry and has been referred to the [facility] for further stabilization. August 05, 2018 Dr. Bhakta is titrating medications, Dr. Bhakta seeking transfer to [facility] to await [facility] hospitalization as soon as possible.), Dr. Jeffery Cody (Patient is new to Dr. Cody, patient needs to be transferred to [facility] as soon as possible to await [facility] hospitalization. Dr. Cody is increasing medication Thorazine, patient remains for further stabilization and is awaiting [facility] hospitalization. August 20, 2018 Dr. Cody is titrating medication Thorazine, patient remains for further stabilization and weight of the [facility] hospital.) Provider Input: 07/31/2018 per doctor, patient continues to display psychotic and noncompliant behavior. Patient still require medication stabilization. Nurse(s) Present: RN Nurse Input: 07/31/2018; per RN patient continues to be inappropriate, with aggressive behavior. Patient is taking selective medication, and require coaching and prompting for compliance. Psychiatric Counselors Present: Hong Dunn Jr., [facility] (Hong establish contact with the patient's brother regarding discharge plan. Brother Jorge Alberto Weston is advocating for state hospitalization. Brother reports he will be in attendance at [facility] court this week to advocate for state hospitalization. July 24, 2018 counselor is working with the patient's brother and sister to advocate for further stabilization with a long-term plan of seeking placement at the [facility]. Patient appears to be at rest for self-harm or harm to others if he were to be discharged into the community. Counselor Hong is working with Laine Canela clinical coordinator to have patient transferred to [facility] as soon as possible to await [facility] hospitalization. August 13, 2018 Counselor will inquire with [facility] and assist with a transfer to [facility] to await [facility] hospitalization as soon as possible. Patient appears to be improving as evidenced by being less intrusive and more appropriate in conversation. Counselor will establish contact with [facility] to inquire about the possibility of transfer to await state hospitalization. August 20, 2018 patient is #42 on the state waitlist. Counselor will continue to work with Robin Watters lucie for potential transfer to [facility] to await state hospitalization.) Psychiatric Therapist Input: 07/31/2018; counselor has complete state package and patient is a pending state hospital admission when be is available. Group Spec/RT/OT/FRAGA Present: MAME Hodges (Patient does not attend groups, patient is not appropriate and has difficulty being redirected at this time. August 16, 2018 patient attends select groups), PHILLY Davalos ( Patient attends select groups, does not tolerate social activities well. Patient attends select groups, is somewhat appropriate, needs redirection. August 13, 2018 patient attends select groups, often inappropriate, needs redirection. August 20, 2018 patient attends select groups and is redirectable at this time.) - Documentation Teaching Recipient: Patient
[2018-08-20] MEDS: Divalproex 250 MG ER Tablet PO SCH (20:36)
[2018-08-21] MEDS: ChlorproMAZINE 50 MG Tablet PO SCH ×2 (08:53→16:54)
[2018-08-21] MEDS: Divalproex 500 MG ER Tablet PO SCH (08:53)
[2018-08-21] MEDS: Docusate Sodium 100 MG Capsule PO SCH ×2 (08:54→20:33)
--- NOTE | 2018-08-21 11:07 | P.PNPSY ---
Subjective Remarks: Patient seen and examined with nurse and counselor. Chart reviewed. Case discussed with nursing staff. On my examination today, the patient is perseverative on reducing the dose of his Thorazine. He does not articulate any clear side effects or intolerance of this medication, and resistance to treatment is suspected. He has produced a 10-page document reportedly regarding his concerns about his brother. Nursing will make a copy of this document and place on chart for my review. No acute physical complaints. Vital Signs Temp Pulse Resp BP Pulse Ox 08/20/18 18:18 97.9 F 86 18 117/73 96 Intake and Output 08/20/18 08/21/18 08/21/18 22:59 06:59 14:59 Other: Date of Last Bowel Movement 08/15/18 Labs reviewed. No new labs. Review of Systems All other systems reviewed negative except as stated in HPI Mental Status Examination Appearance: Appropriate Consciousness: Alert Orientation: Person, Place (At least) Motor Activity: Other (No abnormal motor movements noted) Speech: Unremarkable Language: Other (A little more focused today) Fund of Knowledge: Inadequate Attention and Concentration: Easily distracted Memory: Impaired Mood: Irritable Affect: Irritable Thought Process & Associations: Tangential Thought Content: Bizarre thinking, Delusional Hallucination Type: None Delusion Type: Bizarre, Paranoid Suicidal Ideation: No Homicidal Ideation: No Insight: Poor Judgment: Poor Assessment and Plan - Assessment (1) 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 Continue Depakote as ordered. Hospitalist input noted and appreciated. Continue other medications and care as ordered. Justification for Continued Inpatient Stay: Risk for decompensation in less restrictive environment. Discharge Planning: [facility] referral. Request Healthcare Surrogate/Guardian Advocate?: Yes (2) Schizoaffective disorder Qualifiers: Schizoaffective disorder type: bipolar Qualified Code(s): F25.0 - Schizoaffective disorder, bipolar type
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
[2018-08-21] MEDS: Divalproex 250 MG ER Tablet PO SCH (20:33)
[2018-08-22] MEDS: ChlorproMAZINE 50 MG Tablet PO SCH ×2 (09:27→15:52)
[2018-08-22] MEDS: Docusate Sodium 100 MG Capsule PO SCH ×2 (09:28→21:02)
[2018-08-22] MEDS: Divalproex 500 MG ER Tablet PO SCH (09:28)
[2018-08-22] MEDS: Acetaminophen 325 MG Tablet PO PRN (12:28)
--- NOTE | 2018-08-22 16:32 | P.PNPSY ---
Subjective Remarks: Reviewed electronic medical record and discussed case with staff. Follow up conducted in patient's room with Dylan Dow present. Patient found lying on his bed with the covers over his head. When asked how he's feeling he states, "I'm being born". He reports that he has been sleeping "more or less okay". Reports that his appetite is "okay". He requests that the thorazine be decreased, although this is the best I have seen him thus far, Therefore, I explained that I would not be making that decrease. Mental Status Examination Appearance: Appropriate Consciousness: Alert Orientation: Person, Place (At least) Motor Activity: Other (No abnormal motor movements noted) Speech: Unremarkable Language: Other (A little more focused today) Fund of Knowledge: Inadequate Attention and Concentration: Easily distracted Memory: Impaired Mood: Irritable Affect: Irritable Thought Process & Associations: Tangential Thought Content: Bizarre thinking, Delusional Hallucination Type: None Delusion Type: Bizarre, Paranoid Suicidal Ideation: No Suicidal Plan: No Suicidal Intention: No Homicidal Ideation: No Homicidal Plan: No Homicidal Intention: No Insight: Poor Judgment: Poor Assessment and Plan - Assessment (1) 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 Discharge planning in progress. Justification for Continued Inpatient Stay: Moving this patient to a lower level of care would likely result in decompensation. Request Healthcare Surrogate/Guardian Advocate?: Yes
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
[2018-08-22] MEDS: Divalproex 250 MG ER Tablet PO SCH (21:02)
[2018-08-22] MEDS: Ibuprofen 600 MG Tablet PO PRN (21:32)
[2018-08-23] MEDS: ChlorproMAZINE 50 MG Tablet PO SCH ×2 (08:16→16:00)
[2018-08-23] MEDS: Divalproex 500 MG ER Tablet PO SCH (08:16)
[2018-08-23] MEDS: Docusate Sodium 100 MG Capsule PO SCH ×2 (08:17→20:48)
[2018-08-23] MEDS: Ibuprofen 600 MG Tablet PO PRN ×2 (11:11→22:04)
--- NOTE | 2018-08-23 12:03 | P.PNPSY ---
Subjective Remarks: Patient seen and examined with nurse. Chart reviewed. I have reviewed patient' s letter regarding his brother. This is somewhat scattered and difficult to follow. Although some of the concerns may have basis in reality, there is a somewhat delusional quality to some of the other material. Case discussed with nursing staff. On my examination today, the patient is in fairly good spirits. Psychiatric condition is more or less unchanged. He is resistant to taking the Thorazine, even though he seems to be improving with it. He says jokingly "I do not want kerosene, benzene or Thorazine!" No reported side effects from medications. No physical complaints. Vital Signs Temp Pulse Resp BP Pulse Ox 08/23/18 06:04 98.0 F 84 19 110/63 98 Labs reviewed. No new labs. Microbiology 08/22/18 16:30 Gram Stain - Final Wound - Chest Wound Culture - Preliminary S. aureus MRSA Wound cx growing MRSA. Contact precautions initiated by RN. We will transfer pt to [facility]. Review of Systems All other systems reviewed negative except as stated in HPI (Limitation: Poor historian) Mental Status Examination Appearance: Appropriate Consciousness: Alert Orientation: Person, Place (At least) Motor Activity: Other (No motoric abnormalities noted) Speech: Unremarkable Language: Other (A little more focused today) Fund of Knowledge: Inadequate Attention and Concentration: Easily distracted Memory: Impaired Mood: Appropriate Affect: Appropriate Thought Process & Associations: Tangential Thought Content: Bizarre thinking, Delusional Hallucination Type: None Delusion Type: Bizarre, Paranoid Suicidal Ideation: No Homicidal Ideation: No Insight: Poor Judgment: Poor Assessment and Plan - Assessment (1) 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 Hospitalist input noted and appreciated. Transfer to medical psychiatric unit. Continue other medications and care as ordered. Justification for Continued Inpatient Stay: Complicating condition. High risk for decompensation in less restrictive environment. Discharge Planning: [facility] referral. Request Healthcare Surrogate/Guardian Advocate?: Yes (2) Schizoaffective disorder Qualifiers: Schizoaffective disorder type: bipolar Qualified Code(s): F25.0 - Schizoaffective disorder, bipolar type
--- NOTE | 2018-08-23 12:19 | P.TTN ---
- Patient Problems Problems: 1. Discharge planning 2. Medication compliance 3. Knowledge deficit 4. Lack of coping skills - Progress Toward Goals Provider Present: Dr. Mona Bhakta (Dr. Bhakta is titrating medications, patient remains psychotic and needs further stabilization. July 24, 2018 patient is agitated, angry and has been referred to the [facility] for further stabilization. August 05, 2018 Dr. Bhakta is titrating medications, Dr. Bhakta seeking transfer to [facility] to [facility] as soon as possible[facility] Dr. Jeffery Cody (Patient is new to Dr. Cody, patient needs to be transferred to [facility] as soon as possible to [facility]. Dr. Cody is increasing medication Thorazine, patient remains for further stabilization and is awaiting [facility] hospitalization. August 20, 2018 Dr. Cody is titrating medication Thorazine, patient remains for further stabilization and weight [facility] the [facility]. August 23, 2018 patient remains for further stabilization and is awaiting [facility] for long-term stabilization.) Provider Input: 07/31/2018 per doctor, patient continues to display psychotic and noncompliant behavior. Patient still require medication stabilization. Nurse(s) Present: RN Nurse Input: 07/31/2018; per RN patient continues to be inappropriate, with aggressive behavior. Patient is taking selective medication, and require coaching and prompting for compliance. Psychiatric Counselors Present: Hong Dunn Jr., [facility] (Hong establish contact with the patient's brother regarding discharge plan. Brother Jorge Alberto Weston is advocating for state hospitalization. Brother reports he will be in attendance at [facility] court this week to advocate for state hospitalization. July 24, 2018 counselor is working with the patient's brother and sister to advocate for further stabilization with a long-term plan of seeking placement at [facility]. Patient appears to be at rest for self-harm or harm to others if he were to be discharged into the community. Counselor Pitts is working with Laine Canela clinical coordinator to have patient transferred to [facility] as soon as possible [facility]. August 13, 2018 Counselor will inquire with [facility] and assist with a transfer to [facility] to [facility] as soon as possible. Patient appears to be improving as evidenced by being less intrusive and more appropriate in conversation. Counselor will establish contact with Robin [facility]ulkner to inquire about the possibility of transfer to await state hospitalization. August 20, 2018 patient is #42 on the state waitlist. Counselor will continue to work with Robin faulkner for potential transfer to [facility] to await state hospitalization. August 23, 2018 Robin gomes reports they are "full" and cannot house any patients at this time for state hospitalization. Counselor will follow-up.) Psychiatric Therapist Input: 07/31/2018; counselor has complete state package and patient is a pending state hospital admission when be is available. Group Spec/RT/OT/FRAGA Present: MAME Hodges (Patient does not attend groups, patient is not appropriate and has difficulty being redirected at this time. August 16, 2018 patient attends select groups), PHILLY Davalos ( Patient attends select groups, does not tolerate social activities well. Patient attends select groups, is somewhat appropriate, needs redirection. August 13, 2018 patient attends select groups, often inappropriate, needs redirection. August 20, 2018 patient attends select groups and is redirectable at this time. August 23, 2018 patient attends groups and is redirectable.) - Documentation Teaching Recipient: Patient
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
[2018-08-23] MEDS: Divalproex 250 MG ER Tablet PO SCH (20:48)
[2018-08-24 08:43] LABS: Baso % (Auto) 0.5 % (0.0-2.0); Eos # (Auto) 0.3 th/mm3 (0.0-0.4); Eos % (Auto) 4.6 % (0.0-4.0); Hematocrit 41.8 % (39.0-51.0); Hemoglobin 13.9 gm/dL (13.0-17.0); Lymph % (Auto) 39.7 % (9.0-44.0); Mean Corpuscular HGB Conc 33.1 % (32.0-36.0); Mean Corpuscular Hemoglobin 30.9 pg (27.0-34.0); Mean Corpuscular Volume 93.3 fL (80.0-100.0); Mean Platelet Volume 9.4 fL (7.0-11.0); Mono # (Auto) 0.6 th/mm3 (0.0-0.9); Mono % (Auto) 7.8 % (0.0-8.0); Neut # (Auto) 3.6 th/mm3 (1.8-7.7); Neut % (Auto) 47.4 % (16.0-70.0); Platelet Count 133 th/mm3 (150-450); Red Blood Count 4.48 mil/mm3 (4.50-5.90); Red Cell Distribution Width 13.6 % (11.6-17.2); White Blood Count 7.6 th/mm3 (4.0-11.0)
[2018-08-24 08:59] LABS: Calcium 8.7 mg/dL (8.5-10.1); Carbon Dioxide 24.8 meq/L (21.0-32.0); Potassium 4.8 meq/L (3.5-5.1)
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
[2018-08-24] MEDS: ChlorproMAZINE 50 MG Tablet PO SCH (09:12)
[2018-08-24] MEDS: Divalproex 500 MG ER Tablet PO SCH (09:12)
[2018-08-24] MEDS: Docusate Sodium 100 MG Capsule PO SCH ×2 (09:12→20:20)
--- NOTE | 2018-08-24 17:15 | P.PNPSY ---
Subjective Remarks: Patient was seen and case discussed with nursing. Patient is guarded and defensive and refuses the interview after a couple of questions. He is perseverative on the dosing of his medication; though, he continues to be compliant with it. No behavioral outbursts today. Denies suicidal or homicidal ideation intent or plan. Mental Status Examination Appearance: Appropriate Consciousness: Alert Orientation: Person, Place (At least) Motor Activity: Other (No motoric abnormalities noted) Speech: Unremarkable Language: Other (A little more focused today) Fund of Knowledge: Inadequate Attention and Concentration: Easily distracted Memory: Impaired Mood: Appropriate Affect: Appropriate Thought Process & Associations: Tangential Thought Content: Bizarre thinking, Delusional Hallucination Type: None Delusion Type: Bizarre, Paranoid Suicidal Ideation: No Suicidal Plan: No Suicidal Intention: No Homicidal Ideation: No Homicidal Plan: No Homicidal Intention: No Insight: Poor Judgment: Poor Assessment and Plan - Assessment (1) 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 Code(s): S06.9X9S - Unspecified intracranial injury with loss of consciousness of unspecified duration, sequela; F02.81 - Dementia in other diseases classified elsewhere with behavioral disturbance Status: Acute (2) Schizoaffective disorder Code(s): F25.9 - Schizoaffective disorder, unspecified Status: Acute - Plan Plan: Continue current treatment plan Justification for Continued Inpatient Stay: Patient would decompensate in a less restrictive setting Request Healthcare Surrogate/Guardian Advocate?: Yes (2) Schizoaffective disorder Qualifiers: Schizoaffective disorder type: bipolar Qualified Code(s): F25.0 - Schizoaffective disorder, bipolar type
[2018-08-24] MEDS: Ibuprofen 600 MG Tablet PO PRN (17:59)
[2018-08-24] MEDS: Divalproex 250 MG ER Tablet PO SCH (20:21)
[2018-08-25] MEDS: Docusate Sodium 100 MG Capsule PO SCH ×2 (08:42→20:48)
[2018-08-25] MEDS: Divalproex 500 MG ER Tablet PO SCH (08:42)
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
[2018-08-25] MEDS: Ibuprofen 600 MG Tablet PO PRN (11:23)
--- NOTE | 2018-08-25 13:38 | P.PNPSY ---
Subjective Remarks: Patient was seen and case discussed with nursing. Review of his vital signs showed hypotension likely secondary to Thorazine. Patient also says he feels dizzy after Thorazine. Otherwise, he is seclusive to his room because of MRSA. Mood is improved since yesterday he is less irritable. Denies suicidal homicidal ideation intent or plan Mental Status Examination Appearance: Appropriate Consciousness: Alert Orientation: Person, Place (At least) Motor Activity: Other (No motoric abnormalities noted) Speech: Unremarkable Language: Other (A little more focused today) Fund of Knowledge: Inadequate Attention and Concentration: Easily distracted Memory: Impaired Mood: Appropriate Affect: Appropriate Thought Process & Associations: Tangential Thought Content: Bizarre thinking, Delusional Hallucination Type: None Delusion Type: Bizarre, Paranoid Suicidal Ideation: No Suicidal Plan: No Suicidal Intention: No Homicidal Ideation: No Homicidal Plan: No Homicidal Intention: No Insight: Poor Judgment: Poor Assessment and Plan - Assessment (1) 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 We will order orthostatic vitals Justification for Continued Inpatient Stay: Patient would decompensate in a less restrictive setting Request Healthcare Surrogate/Guardian Advocate?: Yes (2) Schizoaffective disorder Qualifiers: Schizoaffective disorder type: bipolar Qualified Code(s): F25.0 - Schizoaffective disorder, bipolar type
[2018-08-25] MEDS ORDERED: ChlorproMAZINE 50 MG Tablet PO SCH ×3 (16:00→21:00)
[2018-08-25] MEDS: ChlorproMAZINE 25 MG Tablet PO SCH (16:44)
[2018-08-25] MEDS: Divalproex 250 MG ER Tablet PO SCH (20:47)
[2018-08-25] MEDS ORDERED: ChlorproMAZINE 25 MG Tablet PO SCH (21:00)
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
[2018-08-26] MEDS: Divalproex 500 MG ER Tablet PO SCH (08:56)
[2018-08-26] MEDS: Docusate Sodium 100 MG Capsule PO SCH ×2 (08:56→21:07)
[2018-08-26] MEDS: ChlorproMAZINE 25 MG Tablet PO SCH ×3 (08:56→21:07)
--- NOTE | 2018-08-26 10:25 | P.PNPSY ---
Subjective Remarks: Patient seen and examined with nurse. Patient remains on isolation precautions for MRSA. However, patient's bathroom has been malfunctioning and so he reportedly has had to leave his room to use another bathroom. I have instructed nurse to have patient moved to a different room so that he may use his own bathroom and not break isolation. Chart reviewed. I note orthostatic VS from yesterday. I also note that rounding physician over weekend has halved patient's Thorazine. Case discussed with RN. Case discussed with counselor. Case also discussed with midlevel provider from hospitalist service. On my exam today, I note interval worsening since Thorazine dose was decreased. Patient's affect is more irritable and labile. He is more paranoid regarding his brother. He makes reference to believing in "mental telepathy" and says that he is receiving good messages through one ear and bad messages through the other. No CAH to hurt self/others. No reported side effects from medications. No physical complaints. Vital Signs Temp Pulse Resp BP Pulse Ox 08/25/18 18:26 97.6 F 84 16 167/85 H 93 L Intake and Output 08/25/18 08/26/18 08/26/18 22:59 06:59 14:59 Intake Total 1440 / 1440 Balance 1440 / 1440 Intake: Oral 1440 / 1440 Other: Date of Last Bowel Movement 08/15/18 Labs reviewed. No new labs. Review of Systems All other systems reviewed negative except as stated in HPI (Limitation: Psychosis) Mental Status Examination Appearance: Appropriate Consciousness: Alert Orientation: Person, Place (At least) Motor Activity: Other (No motor abnormalities appreciated) Speech: Unremarkable Language: Other (A little more focused today) Fund of Knowledge: Inadequate Attention and Concentration: Easily distracted Memory: Impaired Mood: Irritable Affect: Irritable, Labile Thought Process & Associations: Disorganized, Tangential Thought Content: Bizarre thinking, Delusional Hallucination Type: Auditory Delusion Type: Bizarre, Paranoid (Increased) Suicidal Ideation: No Homicidal Ideation: No Insight: Poor Judgment: Poor Assessment and Plan - Assessment (1) 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 Rather than tapering the dose of the Thorazine in response to orthostasis, I think it is more appropriate at present to manage the orthostasis in order to allow patient to remain on current (or higher) dose of Thorazine given how much it seems to have been helping the patient (this is especially noticeable now that dose has been reduced). I have spoken with midlevel provider for hospitalist service who will start the patient on midodrine for orthostasis. I will re-titrate Thorazine to 100mg TID, and we will plan to recheck orthostatics in a few days once BP has equilibrated with med changes. Continue to monitor on medical psychiatric unit. Hospitalist input noted and appreciated. Continue other medications and care as ordered. Justification for Continued Inpatient Stay: Medication changes. Impairment in reality construction. Complicating conditions. High risk for decompensation in less restrictive environment. Discharge Planning: [facility] referral. According to counselor. Patient is #[phone] on the [facility] referral wait list. Request Healthcare Surrogate/Guardian Advocate?: Yes (2) Schizoaffective disorder Qualifiers: Schizoaffective disorder type: bipolar Qualified Code(s): F25.0 - Schizoaffective disorder, bipolar type
[2018-08-26] MEDS: Divalproex 250 MG ER Tablet PO SCH (21:07)
[2018-08-26] MEDS: Ibuprofen 600 MG Tablet PO PRN (21:39)
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
[2018-08-27] MEDS: Divalproex 500 MG ER Tablet PO SCH (09:07)
[2018-08-27] MEDS: Docusate Sodium 100 MG Capsule PO SCH ×2 (09:07→21:04)
[2018-08-27] MEDS: ChlorproMAZINE 25 MG Tablet PO SCH ×3 (09:07→21:04)
[2018-08-27] MEDS: Ibuprofen 600 MG Tablet PO PRN (16:15)
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
[2018-08-27] MEDS: Divalproex 250 MG ER Tablet PO SCH (21:04)
[2018-08-28] MEDS: Divalproex 500 MG ER Tablet PO SCH (09:46)
[2018-08-28] MEDS: ChlorproMAZINE 25 MG Tablet PO SCH ×3 (09:47→20:42)
[2018-08-28] MEDS: Docusate Sodium 100 MG Capsule PO SCH ×2 (09:47→20:29)
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
[2018-08-28] MEDS: Divalproex 250 MG ER Tablet PO SCH (20:28)
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
[2018-08-29] MEDS: Docusate Sodium 100 MG Capsule PO SCH ×2 (11:57→20:50)
[2018-08-29] MEDS: Divalproex 500 MG ER Tablet PO SCH (11:57)
[2018-08-29] MEDS: ChlorproMAZINE 25 MG Tablet PO SCH ×3 (11:57→20:52)
[2018-08-29] MEDS ORDERED: Chlorpromazine Inj 50 MG/2 ML Ampule IM ONE (12:00)
[2018-08-29] MEDS: Divalproex 250 MG ER Tablet PO SCH (20:53)
[2018-08-30 08:02] LABS: Calcium 8.5 mg/dL (8.5-10.1); Carbon Dioxide 26.7 meq/L (21.0-32.0); Potassium 4.3 meq/L (3.5-5.1)
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
--- NOTE | 2018-08-30 09:33 | P.PNPSY ---
Subjective Remarks: Patient seen today in his room with floor staff, patient calmer more focused today less perseveration delusions continue related to his family. He gave me another 4 pages of handwritten notes related to his delusions. He is not willing to be compliant with his medications the 2001 negotiated decreasing the dosage. We will see how he does over the weekend for now continue treatment Review of Systems All other systems reviewed negative except as stated in HPI Mental Status Examination Appearance: Appropriate Consciousness: Alert Orientation: Person, Place (At least) Motor Activity: Other (No motor abnormalities appreciated) Speech: Unremarkable, Pressured, Rapid Language: Perseveration (Mild), Other (A little more focused today) Fund of Knowledge: Inadequate Attention and Concentration: Easily distracted Memory: Impaired Mood: Irritable Affect: Other (Increased range and intensity) Thought Process & Associations: Disorganized, Tangential Thought Content: Bizarre thinking, Delusional Hallucination Type: Auditory Delusion Type: Bizarre, Paranoid (Increased) Suicidal Ideation: No Suicidal Plan: No Suicidal Intention: No Homicidal Ideation: No Homicidal Plan: No Homicidal Intention: No Insight: Poor Judgment: Poor Assessment and Plan - Assessment (1) 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 Code(s): S06.9X9S - Unspecified intracranial injury with loss of consciousness of unspecified duration, sequela; F02.81 - Dementia in other diseases classified elsewhere with behavioral disturbance Status: Acute (2) Schizoaffective disorder Code(s): F25.9 - Schizoaffective disorder, unspecified Status: Acute - Plan Plan: Patient remains delusional and psychotic though the irritability is somewhat softer today with his compliance with his medication now continue treatment Justification for Continued Inpatient Stay: At this time patient would decompensate a place to a lower level of care Discharge Planning: Continue to await word from [facility] placement Request Healthcare Surrogate/Guardian Advocate?: Yes (2) Schizoaffective disorder Qualifiers: Schizoaffective disorder type: bipolar Qualified Code(s): F25.0 - Schizoaffective disorder, bipolar type
[2018-08-30] MEDS: Divalproex 500 MG ER Tablet PO SCH (11:08)
[2018-08-30] MEDS: Docusate Sodium 100 MG Capsule PO SCH ×2 (11:08→21:29)
[2018-08-30] MEDS: ChlorproMAZINE 25 MG Tablet PO SCH ×3 (11:14→22:00)
[2018-08-30] MEDS: Divalproex 250 MG ER Tablet PO SCH (21:29)
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
[2018-08-31] MEDS: Divalproex 500 MG ER Tablet PO SCH (10:28)
[2018-08-31] MEDS: Docusate Sodium 100 MG Capsule PO SCH ×2 (10:34→21:39)
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
[2018-08-31] MEDS: ChlorproMAZINE 25 MG Tablet PO SCH ×3 (10:36→21:39)
[2018-08-31] MEDS: Divalproex 250 MG ER Tablet PO SCH (21:38)
[2018-09-01] MEDS: ChlorproMAZINE 25 MG Tablet PO SCH ×3 (09:02→21:46)
[2018-09-01] MEDS: Divalproex 500 MG ER Tablet PO SCH (09:02)
[2018-09-01] MEDS: Docusate Sodium 100 MG Capsule PO SCH ×2 (09:02→21:46)
--- NOTE | 2018-09-01 13:10 | P.PNPSY ---
Subjective Remarks: Patient was seen and case discussed with nursing. Patient is pleasant and cooperative with exam. He remains confined to his room. Today is asking about his discharge plan and is asking to go home. His behaving well on the unit. He is less irritable compared to her last visit. Compliant with medications Mental Status Examination Appearance: Appropriate Consciousness: Alert Orientation: Person, Place (At least) Motor Activity: Other (No motor abnormalities appreciated) Speech: Unremarkable Language: Perseveration (Mild), Other (A little more focused today) Fund of Knowledge: Inadequate Attention and Concentration: Easily distracted Memory: Impaired Mood: Irritable (Somewhat less today) Affect: Other (Somewhat calmer today) Thought Process & Associations: Circumstantial, Tangential Thought Content: Bizarre thinking Hallucination Type: None Delusion Type: Bizarre, Paranoid (Increased) Suicidal Ideation: No Suicidal Plan: No Suicidal Intention: No Homicidal Ideation: No Homicidal Plan: No Homicidal Intention: No Insight: Poor Judgment: Poor Assessment and Plan - Assessment (1) 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 Code(s): S06.9X9S - Unspecified intracranial injury with loss of consciousness of unspecified duration, sequela; F02.81 - Dementia in other diseases classified elsewhere with behavioral disturbance Status: Acute (2) Schizoaffective disorder Code(s): F25.9 - Schizoaffective disorder, unspecified Status: Acute - Plan Plan: Continue current treatment plan Justification for Continued Inpatient Stay: Patient would decompensate in a less restrictive setting Request Healthcare Surrogate/Guardian Advocate?: Yes (2) Schizoaffective disorder Qualifiers: Schizoaffective disorder type: bipolar Qualified Code(s): F25.0 - Schizoaffective disorder, bipolar type
[2018-09-01] MEDS: Ibuprofen 600 MG Tablet PO PRN (13:31)
[2018-09-01] MEDS: Divalproex 250 MG ER Tablet PO SCH (21:46)
[2018-09-02] MEDS: Docusate Sodium 100 MG Capsule PO SCH ×2 (09:12→21:58)
[2018-09-02] MEDS: ChlorproMAZINE 25 MG Tablet PO SCH ×3 (09:12→21:57)
[2018-09-02] MEDS: Divalproex 500 MG ER Tablet PO SCH (09:12)
--- NOTE | 2018-09-02 09:21 | P.PNPSY ---
Subjective Remarks: Patient seen today in his room with floor staff, case discussed with patient's nurse Jasmyn, chart reviewed, patient showing improved compliance with medication. Patient sitting on the edge of his bed he is alert calm somewhat intense with me. Giving a confusing multiple paranoid delusions all of them quite detailed stating that the cigarette containers outside of restaurants there contents are being given to farmers uses for lasers, that was taken up by insects, that 8 the plants, they transmitted those chemicals to the plants that were eaten by middle-class [place]'s thus poisoning them. He also stated that oranges and travon are larger than they used to be because they are full of growth hormones. He also stated that he has a 400 page book that is being distributed around the world and also in his stumble to the [employer]. That he is going to be us elaborating on TV. There have been no significant changes of these delusions. However his behavior is calm he is not as intrusive loud or irritable. For now continue treatment. We continue to await word from [facility]. It appears his wounds are healing we will have the hospitalist consult will us about his need to be continued on the MRSA protocol Review of Systems All other systems reviewed negative except as stated in HPI Mental Status Examination Appearance: Appropriate Consciousness: Alert Orientation: Person, Place (At least) Motor Activity: Other (No motor abnormalities appreciated) Speech: Unremarkable Language: Perseveration (Mild), Other (A little more focused today) Fund of Knowledge: Inadequate Attention and Concentration: Easily distracted Memory: Impaired Mood: Irritable (Somewhat less today) Affect: Other (Somewhat calmer today) Thought Process & Associations: Circumstantial, Tangential Thought Content: Bizarre thinking Hallucination Type: None Delusion Type: Bizarre, Paranoid (Increased) Suicidal Ideation: No Suicidal Plan: No Suicidal Intention: No Homicidal Ideation: No Homicidal Plan: No Homicidal Intention: No Insight: Poor Judgment: Poor Assessment and Plan - Assessment (1) 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 Continue to [facility] Justification for Continued Inpatient Stay: At this time patient would decompensate if placed in a lower level of care Discharge Planning: To be determined continue to await word from [facility] hospital placement Request Healthcare Surrogate/Guardian Advocate?: Yes (2) Schizoaffective disorder Qualifiers: Schizoaffective disorder type: bipolar Qualified Code(s): F25.0 - Schizoaffective disorder, bipolar type
[2018-09-02] MEDS: Divalproex 250 MG ER Tablet PO SCH (21:57)
[2018-09-03] MEDS: Docusate Sodium 100 MG Capsule PO SCH ×2 (08:52→21:06)
[2018-09-03] MEDS: ChlorproMAZINE 25 MG Tablet PO SCH ×3 (08:53→21:06)
[2018-09-03] MEDS: Divalproex 500 MG ER Tablet PO SCH (08:53)
[2018-09-03] MEDS ORDERED: Chlorpromazine Inj 50 MG/2 ML Ampule IM STA (13:31)
--- NOTE | 2018-09-03 13:34 | P.PNPSY ---
Subjective Remarks: Patient seen in his room with floor staff, patient laying in bed continues somewhat angry at me questioning why he remains here. As I attempted to discuss the chronicity of his mental illness the recidivism with his admissions and his poor track record with placements became more angry when I suggested that perhaps he might benefit from an [facility] her fdc he became more angry saying all he wanted to do was go to his own home. And if he had to he will call the mechanical press operator to reinforce that. Patient has been compliant with his medication. After I leave seeing him but before I dictated this note patient came out to the nurses station irate angry yelling screaming and threatening I was called by nurse Florencia she was concerned about his becoming more aggressive for perhaps hurting himself thus I ordered an medically necessary Thorazine 50 mg IM and Benadryl 25 mg IM Review of Systems All other systems reviewed negative except as stated in HPI Mental Status Examination Appearance: Appropriate Consciousness: Alert Orientation: Person, Place (At least) Motor Activity: Other (No motor abnormalities appreciated) Speech: Pressured, Rapid Language: Perseveration (Mild), Other (A little more focused today) Fund of Knowledge: Inadequate Attention and Concentration: Easily distracted Memory: Impaired Mood: Angry, Irritable (Somewhat less today) Affect: Other (Increased range and intensity) Thought Process & Associations: Circumstantial, Tangential Thought Content: Bizarre thinking, Other (Increasingly paranoid) Hallucination Type: None Delusion Type: Bizarre, Paranoid (Increased) Suicidal Ideation: No Suicidal Plan: No Suicidal Intention: No Homicidal Ideation: No Homicidal Plan: No Homicidal Intention: No Insight: Poor Judgment: Poor Assessment and Plan - Assessment (1) 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 See medication adjustment above Justification for Continued Inpatient Stay: At this time patient would decompensate a place to a lower level of care Discharge Planning: Continue to await word from state hospital placement Request Healthcare Surrogate/Guardian Advocate?: Yes (2) Schizoaffective disorder Qualifiers: Schizoaffective disorder type: bipolar Qualified Code(s): F25.0 - Schizoaffective disorder, bipolar type
[2018-09-03] MEDS: Ibuprofen 600 MG Tablet PO PRN (17:03)
[2018-09-03] MEDS: Divalproex 250 MG ER Tablet PO SCH (21:06)
[2018-09-04] MEDS: Ibuprofen 600 MG Tablet PO PRN ×2 (01:00→16:13)
[2018-09-04] MEDS: ChlorproMAZINE 25 MG Tablet PO SCH ×3 (08:21→20:45)
[2018-09-04] MEDS: Divalproex 500 MG ER Tablet PO SCH (08:21)
[2018-09-04] MEDS: Docusate Sodium 100 MG Capsule PO SCH ×2 (08:21→20:46)
--- NOTE | 2018-09-04 12:18 | P.TTN ---
- Patient Problems Problems: 1. Discharge planning 2. Medication compliance 3. Knowledge deficit 4. Lack of coping skills - Progress Toward Goals Provider Present: Dr. Mona Bhakta (Dr. Bhakta is titrating medications, patient remains psychotic and needs further stabilization. July 24, 2018 patient is agitated, angry and has been referred to the [facility] for further stabilization. August 05, 2018 Dr. Bhakta is titrating medications, Dr. Bhakta seeking transfer to [facility] to await [facility] hospitalization as soon as possible.), Dr. Jeffery Cody (Patient is new to Dr. Cody, patient needs to be transferred to [facility] as soon as possible to await [facility] hospitalization. Dr. Cody is increasing medication Thorazine, patient remains for further stabilization and is awaiting [facility] hospitalization. August 20, 2018 Dr. Cody is titrating medication Thorazine, patient remains for further stabilization and weight of the [facility] hospital. August 23, 2018 patient remains for further stabilization and is awaiting [facility] for long-term stabilization.), Dr. Wilder Sánchez Provider Input: 09/02/18: pt continues to present with inconsistent and non- compliant (with medication and with cooperation with staff) behaviors. Pt is on isolation per his MRSA, Thorazine administered per agitation. Pt disposition is [facility] when MRSA resolved and medically cleared. 07/31/2018 per doctor, patient continues to display psychotic and noncompliant behavior. Patient still require medication stabilization. Nurse(s) Present: RN Nurse Input: 07/31/2018; per RN patient continues to be inappropriate, with aggressive behavior. Patient is taking selective medication, and require coaching and prompting for compliance. Psychiatric Counselors Present: Hong Dunn Jr., [facility], [place] (Hong establish contact with the patient's brother regarding discharge plan. Brother Jorge Alberto Weston is advocating for [facility] hospitalization. Brother reports he will be in attendance at [facility] this week to advocate for [facility] hospitalization. July 24, 2018 counselor is working with the patient's brother and sister to advocate for further stabilization with a long-term plan of seeking placement at the [facility]. Patient appears to be at rest for self-harm or harm to others if he were to be discharged into the community. Counselor Hong is working with Laine Canela clinical coordinator to have patient transferred to [facility] as soon as possible to await state hospitalization. August 13, 2018 Counselor will inquire with [facility] and assist with a transfer to [facility] to await state hospitalization as soon as possible. Patient appears to be improving as evidenced by being less intrusive and more appropriate in conversation. Counselor will establish contact with [facility] to inquire about the possibility of transfer to await state hospitalization. August 20, 2018 patient is #42 on the state waitlist. Counselor will continue to work with [facility] for potential transfer to [facility] to await state hospitalization. August 23, 2018 [facility] reports they are "full" and cannot house any patients at this time for state hospitalization. Counselor will follow-up.) Psychiatric Therapist Input: 07/31/2018; counselor has complete state package and patient is a pending state hospital admission when be is available. Group Spec/RT/OT/FRAGA Present: MAME Hodges (Patient does not attend groups, patient is not appropriate and has difficulty being redirected at this time. August 16, 2018 patient attends select groups), eLandro Pérez, OT, Molina Regalado, PHILLY (Patient attends select groups, does not tolerate social activities well. Patient attends select groups, is somewhat appropriate, needs redirection. August 13, 2018 patient attends select groups, often inappropriate, needs redirection. August 20, 2018 patient attends select groups and is redirectable at this time. August 23, 2018 patient attends groups and is redirectable.) Group Spec/RT/OT/FRAGA Input: 09/02/18: Pt on isolation, does not attend groups, he can be agitated on unit ([address]), belligerent, intrusive and yelling with significant challenge for redirection. Pt's behaviors are unpredictable. Additional Input: 09/02/18: [facility] when MRSA resolved and medically cleared. - Documentation Teaching Recipient: Patient
--- NOTE | 2018-09-04 14:48 | P.PNPSY ---
Subjective Remarks: Patient seen in his room with floor staff, patient in bed with covers over his chest. Making no eye contact with me continues to be quite angry with me stating that all he wants to do is send him to [place]. That when he is discharged from there it will be [employer] [place]. He then refused to say anything more to me. Patient overall compliant medication still remains quite volatile much of his anger and frustration and focused on me. Continue to await word from [facility] referral patient's last Depakote blood level was drawn on 1024 at 84 will recheck Depakote blood level in a.m. Review of Systems All other systems reviewed negative except as stated in HPI Mental Status Examination Appearance: Appropriate Consciousness: Alert Orientation: Person, Place (At least) Motor Activity: Other (No motor abnormalities appreciated) Speech: Pressured, Rapid Language: Perseveration (Mild), Other (A little more focused today) Fund of Knowledge: Inadequate Attention and Concentration: Easily distracted Memory: Impaired Mood: Angry, Irritable (Somewhat less today) Affect: Other (Increased range and intensity) Thought Process & Associations: Circumstantial, Tangential Thought Content: Bizarre thinking, Other (Increasingly paranoid) Hallucination Type: None Delusion Type: Bizarre, Paranoid (Increased) Suicidal Ideation: No Suicidal Plan: No Suicidal Intention: No Homicidal Ideation: No Homicidal Plan: No Homicidal Intention: No Insight: Poor Judgment: Poor Assessment and Plan - Assessment (1) 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 For now continue treatment continue to await word from [facility] we will check Depakote blood level in a.m. Justification for Continued Inpatient Stay: At this time patient would decompensate a place to a lower level of care Discharge Planning: Continue to await word from [facility] referral Request Healthcare Surrogate/Guardian Advocate?: Yes (2) Schizoaffective disorder Qualifiers: Schizoaffective disorder type: bipolar Qualified Code(s): F25.0 - Schizoaffective disorder, bipolar type
[2018-09-04] MEDS: Divalproex 250 MG ER Tablet PO SCH (20:44)
[2018-09-05] MEDS: Ibuprofen 600 MG Tablet PO PRN (09:28)
[2018-09-05] MEDS: Divalproex 500 MG ER Tablet PO SCH (09:28)
[2018-09-05] MEDS: ChlorproMAZINE 25 MG Tablet PO SCH ×3 (09:29→21:59)
[2018-09-05] MEDS: Docusate Sodium 100 MG Capsule PO SCH ×2 (09:29→21:58)
--- NOTE | 2018-09-05 14:49 | P.PNPSY ---
Subjective Remarks: Patient seen today in his room with nurse Racheal, patient lying in bed with sheets up to his chin. He is somewhat calmer and focused today with me did apologize for his behavior yesterday. Though he does perseverate again about his money and his desire to have his own independent living. He is compliant medication. Does deny suicidality at this time and does deny voices today. We will continue to await [facility] Review of Systems All other systems reviewed negative except as stated in HPI Mental Status Examination Appearance: Appropriate Consciousness: Alert Orientation: Person, Place (At least) Motor Activity: Other (No motor abnormalities appreciated) Speech: Pressured, Rapid Language: Perseveration (Mild), Other (A little more focused today) Fund of Knowledge: Inadequate Attention and Concentration: Easily distracted Memory: Impaired Mood: Angry, Irritable (Somewhat less today) Affect: Other (Increased range and intensity) Thought Process & Associations: Circumstantial, Tangential Thought Content: Bizarre thinking, Other (Increasingly paranoid) Hallucination Type: None Delusion Type: Bizarre, Paranoid (Increased) Suicidal Ideation: No Suicidal Plan: No Suicidal Intention: No Homicidal Ideation: No Homicidal Plan: No Homicidal Intention: No Insight: Poor Judgment: Poor Assessment and Plan - Assessment (1) 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 Justification for Continued Inpatient Stay: At this time patient would decompensate a place to a lower level of care Discharge Planning: We continue to [facility] Request Healthcare Surrogate/Guardian Advocate?: Yes (2) Schizoaffective disorder Qualifiers: Schizoaffective disorder type: bipolar Qualified Code(s): F25.0 - Schizoaffective disorder, bipolar type
[2018-09-05] MEDS: Divalproex 250 MG ER Tablet PO SCH (21:58)
--- NOTE | 2018-09-06 10:25 | P.PNPSY ---
Subjective Remarks: Patient is seen today in his room with nurse Racheal, chart reviewed, patient compliant medication. Patient remains calm today though still somewhat hyperverbal. Today stating that he has a 400 page book that is 10 years old and is in the [employer] that tells all of the issues related to multiple public and entertainment figures. He also makes references to Nostradamus and add Lantus. He also makes reference to the #141 stating that might be of [phone] which would include [facility] that it is under laid by a mesh in the aqua for that some day he will develop some type of a gravity bubble and take the whole area [facility] to join with the [facility] [place] Review of Systems All other systems reviewed negative except as stated in HPI Mental Status Examination Appearance: Appropriate Consciousness: Alert Orientation: Person, Place (At least) Motor Activity: Other (No motor abnormalities appreciated) Speech: Pressured, Rapid Language: Perseveration (Mild), Other (A little more focused today) Fund of Knowledge: Inadequate Attention and Concentration: Easily distracted Memory: Impaired Mood: Angry, Irritable (Somewhat less today) Affect: Other (Increased range and intensity) Thought Process & Associations: Circumstantial, Tangential Thought Content: Bizarre thinking, Other (Increasingly paranoid) Hallucination Type: None Delusion Type: Bizarre, Paranoid (Increased) Suicidal Ideation: No Suicidal Plan: No Suicidal Intention: No Homicidal Ideation: No Homicidal Plan: No Homicidal Intention: No Insight: Poor Judgment: Poor Assessment and Plan - Assessment (1) 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 Code(s): S06.9X9S - Unspecified intracranial injury with loss of consciousness of unspecified duration, sequela; F02.81 - Dementia in other diseases classified elsewhere with behavioral disturbance Status: Acute (2) Schizoaffective disorder Code(s): F25.9 - Schizoaffective disorder, unspecified Status: Acute - Plan Plan: Patient remained somewhat psychotic and delusional, though behaviors under better control today, he is compliant with medication continue to await word from state hospital referral Justification for Continued Inpatient Stay: At this time patient would decompensate a place to a lower level of care Discharge Planning: Continue to await word from state hospital referral Request Healthcare Surrogate/Guardian Advocate?: Yes (2) Schizoaffective disorder Qualifiers: Schizoaffective disorder type: bipolar Qualified Code(s): F25.0 - Schizoaffective disorder, bipolar type
[2018-09-06] MEDS: Divalproex 500 MG ER Tablet PO SCH (10:38)
[2018-09-06] MEDS: Docusate Sodium 100 MG Capsule PO SCH ×2 (10:38→22:01)
[2018-09-06] MEDS: ChlorproMAZINE 25 MG Tablet PO SCH ×3 (10:48→22:01)
[2018-09-06] MEDS: Divalproex 250 MG ER Tablet PO SCH (22:01)
[2018-09-07] MEDS: Divalproex 500 MG ER Tablet PO SCH (08:29)
[2018-09-07] MEDS: ChlorproMAZINE 25 MG Tablet PO SCH ×3 (08:29→21:25)
[2018-09-07] MEDS: Docusate Sodium 100 MG Capsule PO SCH ×2 (08:29→21:27)
--- NOTE | 2018-09-07 17:12 | P.PNPSY ---
Subjective Remarks: Pt seen and discussed with staff. He has hx of schizophrenia. He has not had ETO today and has been pleasant and cooperative with care. He remains disorganized and has been taking off clothes and masturbating in room and making accusatory statements to staff rn. He states that Dr. Bhakta is trying to run his life and he goes off on a rant of paranoid ideations. He states that he is going to go through his welfare case worker to address complaints about Dr. Bhakta. "He and my brother want my money". Mental Status Examination Appearance: Appropriate Consciousness: Alert Orientation: Person, Place (At least) Motor Activity: Other (No motor abnormalities appreciated) Speech: Pressured, Rapid Language: Perseveration (Mild), Other (A little more focused today) Fund of Knowledge: Inadequate Attention and Concentration: Easily distracted Memory: Impaired Mood: Irritable (Somewhat less today), Other (less labile) Affect: Other (Increased range and intensity) Thought Process & Associations: Tangential Thought Content: Bizarre thinking, Other (Increasingly paranoid) Hallucination Type: None Delusion Type: Bizarre, Paranoid (Increased) Suicidal Ideation: No Suicidal Plan: No Suicidal Intention: No Homicidal Ideation: No Homicidal Plan: No Homicidal Intention: No Insight: Poor Judgment: Poor Assessment and Plan - Assessment (1) 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 Continue current tx plan. Justification for Continued Inpatient Stay: psychosis Request Healthcare Surrogate/Guardian Advocate?: Yes (2) Schizoaffective disorder Qualifiers: Schizoaffective disorder type: bipolar Qualified Code(s): F25.0 - Schizoaffective disorder, bipolar type
[2018-09-07] MEDS: Divalproex 250 MG ER Tablet PO SCH (21:26)
[2018-09-08] MEDS: ChlorproMAZINE 25 MG Tablet PO SCH ×3 (08:23→21:09)
[2018-09-08] MEDS: Divalproex 500 MG ER Tablet PO SCH (08:23)
[2018-09-08] MEDS: Docusate Sodium 100 MG Capsule PO SCH ×2 (08:23→21:09)
--- NOTE | 2018-09-08 18:22 | P.PNPSY ---
Subjective Remarks: Pt seen and discussed with staff. Today he has been calm and pleasant. Staff report he took all of medications without difficulty today and did not have any verbal outbursts today and has been easier to redirect. Mental Status Examination Appearance: Appropriate Consciousness: Alert Orientation: Person, Place (At least) Motor Activity: Other (No motor abnormalities appreciated) Speech: Pressured, Rapid Language: Perseveration (Mild), Other (A little more focused today) Fund of Knowledge: Inadequate Attention and Concentration: Easily distracted Memory: Impaired Mood: Irritable (Somewhat less today), Other (less labile) Affect: Other (Increased range and intensity) Thought Process & Associations: Tangential Thought Content: Bizarre thinking, Other (Increasingly paranoid) Hallucination Type: None Delusion Type: Bizarre, Paranoid (Increased) Suicidal Ideation: No Suicidal Plan: No Suicidal Intention: No Homicidal Ideation: No Homicidal Plan: No Homicidal Intention: No Insight: Poor Judgment: Poor Assessment and Plan - Assessment (1) 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 Continue current tx plan. Justification for Continued Inpatient Stay: psychosis Request Healthcare Surrogate/Guardian Advocate?: Yes (2) Schizoaffective disorder Qualifiers: Schizoaffective disorder type: bipolar Qualified Code(s): F25.0 - Schizoaffective disorder, bipolar type
[2018-09-08] MEDS: Divalproex 250 MG ER Tablet PO SCH (21:10)
[2018-09-09] MEDS: Docusate Sodium 100 MG Capsule PO SCH ×2 (10:39→21:59)
[2018-09-09] MEDS: Divalproex 500 MG ER Tablet PO SCH (10:39)
[2018-09-09] MEDS: ChlorproMAZINE 25 MG Tablet PO SCH (10:40)
[2018-09-09] MEDS: Ibuprofen 600 MG Tablet PO PRN (13:12)
--- NOTE | 2018-09-09 14:37 | P.TTN ---
- Patient Problems Problems: 1. Discharge planning 2. Medication compliance 3. Knowledge deficit 4. Lack of coping skills - Progress Toward Goals Provider Present: Dr. Mona Bhakta (Dr. Bhakta is titrating medications, patient remains psychotic and needs further stabilization. July 24, 2018 patient is agitated, angry and has been referred to the [facility] for further stabilization. August 05, 2018 Dr. Bhakta is titrating medications, Dr. Bhakta seeking transfer to [facility] to await [facility] hospitalization as soon as possible.), Dr. Jeffery Cody (Patient is new to Dr. Cody, patient needs to be transferred to [facility] as soon as possible to await [facility] hospitalization. Dr. Cody is increasing medication Thorazine, patient remains for further stabilization and is awaiting [facility] hospitalization. August 20, 2018 Dr. Cody is titrating medication Thorazine, patient remains for further stabilization and weight of the [facility] hospital. August 23, 2018 patient remains for further stabilization and is awaiting [facility] for long-term stabilization.), Dr. Wilder Sánchez Provider Input: 09/09/2018; patient continues to be in isolation, requires redirection medications are being monitor for change. 09/02/18: pt continues to present with inconsistent and non-compliant (with medication and with cooperation with staff) behaviors. Pt is on isolation per his MRSA, Thorazine administered per agitation. Pt disposition is [facility] when MRSA resolved and medically cleared. 07/31/2018 per doctor, patient continues to display psychotic and noncompliant behavior. Patient still require medication stabilization. Nurse(s) Present: JAMAL Washington Nurse Input: 09/09/2018; per RN patient is inapproprioate behavior, requires redirection with mood, coaching with meds, he is eating meals. 07/31/2018; per RN patient continues to be inappropriate, with aggressive behavior. Patient is taking selective medication, and require coaching and prompting for compliance. Psychiatric Counselors Present: Hong Dunn Jr., [facility] (Hong establish contact with the patient's brother regarding discharge plan. Brother Jorge Alberto Weston is advocating for state hospitalization. Brother reports he will be in attendance at [employer] [facility] this week to advocate for state hospitalization. July 24, 2018 counselor is working with the patient's brother and sister to advocate for further stabilization with a long-term plan of seeking placement at the [facility] hospital. Patient appears to be at rest for self-harm or harm to others if he were to be discharged into the community. Counselor Hong is working with Laine Canela clinical coordinator to have patient transferred to [facility] as soon as possible to await state hospitalization. August 13, 2018 Counselor will inquire with [facility] and assist with a transfer to [facility] to await state hospitalization as soon as possible. Patient appears to be improving as evidenced by being less intrusive and more appropriate in conversation. Counselor will establish contact with [facility] to inquire about the possibility of transfer to await state hospitalization. August 20, 2018 patient is #42 on the state waitlist. Counselor will continue to work with [facility] for potential transfer to [facility] to await state hospitalization. August 23, 2018 [facility] reports they are "full" and cannot house any patients at this time for state hospitalization. Counselor will follow-up.), Magdalena Jimenez , [facility] Psychiatric Therapist Input: 09/09/2018; patient is as State wait, continues to have behavior issues and require redirection. 07/31/2018; counselor has complete state package and patient is a pending state hospital admission when be is available. Group Spec/RT/OT/FRAGA Present: Tomeka Chaudhary, [facility] (Patient does not attend groups, patient is not appropriate and has difficulty being redirected at this time. August 16, 2018 patient attends select groups), Leandro Pérez, OT, PHILLY Davalos (Patient attends select groups, does not tolerate social activities well. Patient attends select groups, is somewhat appropriate, needs redirection. August 13, 2018 patient attends select groups, often inappropriate, needs redirection. August 20, 2018 patient attends select groups and is redirectable at this time. August 23, 2018 patient attends groups and is redirectable.) Group Spec/RT/OT/FRAGA Input: 09/09/2018; Per OT/RT patient is not group appropriate. 09/02/18: Pt on isolation, does not attend groups, he can be agitated on unit ([address]), belligerent, intrusive and yelling with significant challenge for redirection. Pt's behaviors are unpredictable. Additional Input: 09/02/18: [facility] [place] [facility] resolved and medically cleared. - Documentation Teaching Recipient: Patient
[2018-09-09] MEDS ORDERED: Chlorpromazine Inj 50 MG/2 ML Ampule IM STA (15:03)
--- NOTE | 2018-09-09 15:10 | P.PNPSY ---
Subjective Remarks: Patient seen environmental research project manager nurse All and medical student Mariaelena, chart reviewed, patient complained medication. Patient continues angry and irritable with me now demanding discharge from his home [address] for Thanksgiving. He denies suicidality voices or visions still has no insight into his disease. He does have his living in the unit patient became more angry swearing and intrusive to the point where he had to order as needed of Thorazine 25 mg Benadryl 25 mg IM Review of Systems All other systems reviewed negative except as stated in HPI Mental Status Examination Appearance: Appropriate Consciousness: Alert Orientation: Person, Place (At least) Motor Activity: Other (No motor abnormalities appreciated) Speech: Pressured, Rapid Language: Perseveration (Mild), Other (A little more focused today) Fund of Knowledge: Inadequate Attention and Concentration: Easily distracted Memory: Impaired Mood: Irritable (Somewhat less today), Other (less labile) Affect: Other (Increased range and intensity) Thought Process & Associations: Tangential Thought Content: Bizarre thinking, Other (Increasingly paranoid) Hallucination Type: None Delusion Type: Bizarre, Paranoid (Increased) Suicidal Ideation: No Suicidal Plan: No Suicidal Intention: No Homicidal Ideation: No Homicidal Plan: No Homicidal Intention: No Insight: Poor Judgment: Poor Assessment and Plan - Assessment (1) 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 See as needed medications ordered today Justification for Continued Inpatient Stay: At this time patient with decompensated placed on a lower level of care Discharge Planning: Continue to await word from [facility] hospital placement Request Healthcare Surrogate/Guardian Advocate?: Yes (2) Schizoaffective disorder Qualifiers: Schizoaffective disorder type: bipolar Qualified Code(s): F25.0 - Schizoaffective disorder, bipolar type
[2018-09-09] MEDS: Divalproex 250 MG ER Tablet PO SCH (22:00)
[2018-09-10] MEDS: Docusate Sodium 100 MG Capsule PO SCH ×2 (09:58→20:19)
[2018-09-10] MEDS: Divalproex 500 MG ER Tablet PO SCH (09:59)
[2018-09-10] MEDS: Ibuprofen 600 MG Tablet PO PRN (10:37)
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
[2018-09-10] MEDS: Divalproex 250 MG ER Tablet PO SCH (20:19)
[2018-09-11] MEDS: Docusate Sodium 100 MG Capsule PO SCH ×2 (08:20→20:51)
[2018-09-11] MEDS: Divalproex 500 MG ER Tablet PO SCH (08:20)
--- NOTE | 2018-09-11 14:27 | P.PNPSY ---
Subjective Remarks: Reviewed electronic medical records and discussed case with staff. Follow-up was conducted in the patient's room with JAMAL Dallas present. Patient found sleeping in bed. He states he has a good appetite but otherwise does not choose to communicate very much. He does become agitated when Dr. Bhakta's name is mentioned but then rolls back around his side covers it closes his eyes and states, "I am not answering any more questions". His nurse reports that he has been in bed most of the day and has had no behavioral issues thus far. Mental Status Examination Appearance: Appropriate Consciousness: Alert Orientation: Person, Place (At least) Motor Activity: Other (No motor abnormalities appreciated) Speech: Pressured, Rapid Language: Perseveration (Mild), Other (A little more focused today) Fund of Knowledge: Inadequate Attention and Concentration: Easily distracted Memory: Impaired Mood: Angry, Oppositional, Irritable (Somewhat less today), Other (less labile) Affect: Other (Increased range and intensity) Thought Process & Associations: Tangential Thought Content: Bizarre thinking, Other (Increasingly paranoid) Hallucination Type: None Delusion Type: Bizarre, Paranoid (Increased) Suicidal Ideation: No Suicidal Plan: No Suicidal Intention: No Homicidal Ideation: No Homicidal Plan: No Homicidal Intention: No Insight: Poor Judgment: Poor Assessment and Plan - Assessment (1) 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 Continue with current treatment plan. Justification for Continued Inpatient Stay: Moving this patient to a less restrictive environment would likely result in decompensation. Request Healthcare Surrogate/Guardian Advocate?: Yes
[2018-09-11] MEDS: Divalproex 250 MG ER Tablet PO SCH (20:51)
[2018-09-12] MEDS: Docusate Sodium 100 MG Capsule PO SCH ×2 (09:39→20:34)
[2018-09-12] MEDS: Divalproex 500 MG ER Tablet PO SCH (09:40)
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
[2018-09-12] MEDS: Divalproex 250 MG ER Tablet PO SCH (20:34)
[2018-09-13] MEDS: Divalproex 500 MG ER Tablet PO SCH (08:32)
[2018-09-13] MEDS: Docusate Sodium 100 MG Capsule PO SCH ×2 (08:32→20:38)
--- NOTE | 2018-09-13 16:42 | P.PNPSY ---
Subjective Remarks: Reviewed electronic medical records and discussed case with staff. Follow-up was conducted in the patient room with his nurse present. Patient's in a much better mood today. States that he feels "not bad". He is relaxed with his legs kicked up and "ankles crossed. He states that his appetite is "good enough ". He is able to participate in a cooperative manner throughout the follow-up. Mental Status Examination Appearance: Appropriate Consciousness: Alert Orientation: Person, Place (At least) Motor Activity: Other (No motor abnormalities appreciated) Speech: Pressured, Rapid Language: Perseveration (Mild), Other (A little more focused today) Fund of Knowledge: Inadequate Attention and Concentration: Easily distracted Memory: Impaired Mood: Angry, Oppositional, Irritable (Somewhat less today), Other (less labile) Affect: Other (Increased range and intensity) Thought Process & Associations: Tangential Thought Content: Bizarre thinking, Other (Increasingly paranoid) Hallucination Type: None Delusion Type: Bizarre, Paranoid (Increased) Suicidal Ideation: No Suicidal Plan: No Suicidal Intention: No Homicidal Ideation: No Homicidal Plan: No Homicidal Intention: No Insight: Poor Judgment: Poor Assessment and Plan - Assessment (1) 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 Continue with current treatment plan. Patient remains on the state list awaiting placement. Justification for Continued Inpatient Stay: Moving this patient to a less restrictive environment would likely result in decompensation. Request Healthcare Surrogate/Guardian Advocate?: Yes
[2018-09-13] MEDS: Divalproex 250 MG ER Tablet PO SCH (20:38)
[2018-09-14] MEDS: Divalproex 500 MG ER Tablet PO SCH (08:12)
[2018-09-14] MEDS: Docusate Sodium 100 MG Capsule PO SCH ×2 (08:12→20:27)
--- NOTE | 2018-09-14 13:52 | P.PNPSY ---
Subjective Remarks: Reviewed electronic medical records and discussed case with staff. Follow-up was conducted in the patient's room with JAMAL Bermudez present. Patient is quite pleasant today. He continues to do extremely well. He has been compliant with his medications and had no behavioral disturbances per his nurse. He states that he has been sleeping well and his appetite is been good. He also reports his mood is good. He seems to show insight once again apologizing for throwing his feces on this provider. He expresses remorse that discussed drawing hospital property and states that he wishes to make amends. His affect is much improved and he did not appear irritable at all. Mental Status Examination Appearance: Appropriate Consciousness: Alert Orientation: Person, Place (At least) Motor Activity: Other (No motor abnormalities appreciated) Speech: Pressured, Rapid Language: Perseveration (Mild), Other (A little more focused today) Fund of Knowledge: Inadequate Attention and Concentration: Easily distracted Memory: Impaired Mood: Angry, Oppositional, Irritable (Somewhat less today), Other (less labile) Affect: Other (Increased range and intensity) Thought Process & Associations: Tangential Thought Content: Bizarre thinking, Other (Increasingly paranoid) Hallucination Type: None Delusion Type: Bizarre, Paranoid (Increased) Suicidal Ideation: No Suicidal Plan: No Suicidal Intention: No Homicidal Ideation: No Homicidal Plan: No Homicidal Intention: No Insight: Poor Judgment: Poor Assessment and Plan - Assessment (1) 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 Continue with current treatment plan. Justification for Continued Inpatient Stay: Moving this patient to a less restrictive environment would likely result in decompensation. Request Healthcare Surrogate/Guardian Advocate?: Yes
[2018-09-14] MEDS: Divalproex 250 MG ER Tablet PO SCH (20:26)
[2018-09-15] MEDS: Divalproex 500 MG ER Tablet PO SCH (08:11)
[2018-09-15] MEDS: Docusate Sodium 100 MG Capsule PO SCH ×2 (08:11→20:25)
--- NOTE | 2018-09-15 09:24 | P.PNPSY ---
Subjective Remarks: Reviewed medical records and discussed with nursing staff. Rounded with JAMAL Chirinos. Patient slept in most of the morning. Nursing staff report that his mood has improved. He was in the day room watching television. Asking questions about the decision to send him to the [facility]. Cooperative but concerned about his future. No behavioral concerns. Denies SI/HI. Review of Systems All other systems reviewed negative except as stated in HPI Mental Status Examination Appearance: Appropriate Consciousness: Alert Orientation: Person, Place (At least) Motor Activity: Other (No motor abnormalities appreciated) Speech: Pressured, Rapid Language: Perseveration (Mild), Other (A little more focused today) Fund of Knowledge: Inadequate Attention and Concentration: Easily distracted Memory: Impaired Mood: Sad Affect: Labile Thought Process & Associations: Tangential Thought Content: Bizarre thinking, Other (Increasingly paranoid) Hallucination Type: None Delusion Type: Bizarre, Paranoid (Increased) Suicidal Ideation: No Suicidal Plan: No Suicidal Intention: No Homicidal Ideation: No Homicidal Plan: No Homicidal Intention: No Insight: Poor Judgment: Poor Assessment and Plan - Assessment (1) Schizoaffective disorder, bipolar type Code(s): F25.0 - Schizoaffective disorder, bipolar type Status: Acute (2) 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 Continue with current treatment plan. Justification for Continued Inpatient Stay: Moving patient to a less restrictive environment may result in his decompensation. Request Healthcare Surrogate/Guardian Advocate?: Yes
[2018-09-15] MEDS: Divalproex 250 MG ER Tablet PO SCH (20:25)
[2018-09-16] MEDS: Docusate Sodium 100 MG Capsule PO SCH ×2 (08:30→20:52)
[2018-09-16] MEDS: Divalproex 500 MG ER Tablet PO SCH (08:30)
--- NOTE | 2018-09-16 09:04 | P.TTN ---
- Patient Problems Problems: 1. Discharge planning 2. Medication compliance 3. Knowledge deficit 4. Lack of coping skills - Progress Toward Goals Provider Present: Dr. Mona Bhakta (Dr. Bhakta is not titrating medications, patient remains for further stabilization and will [facility]), Dr. Jeffery Cody (Patient is new to Dr. Cody, patient needs to be transferred to [facility] as soon as possible to await [facility] hospitalization. Dr. Cody is increasing medication Thorazine, patient remains for further stabilization and is awaiting [facility] hospitalization. August 20, 2018 Dr. Cody is titrating medication Thorazine, patient remains for further stabilization and weight of the [facility] hospital. August 23, 2018 patient remains for further stabilization and is awaiting [facility] for long-term stabilization.), Dr. Wilder Sánchez Provider Input: 09/09/2018; patient continues to be in isolation, requires redirection medications are being monitor for change. 09/02/18: pt continues to present with inconsistent and non-compliant (with medication and with cooperation with staff) behaviors. Pt is on isolation per his MRSA, Thorazine administered per agitation. Pt disposition is [facility] when MRSA resolved and medically cleared. 07/31/2018 per doctor, patient continues to display psychotic and noncompliant behavior. Patient still require medication stabilization. Nurse(s) Present: JAMAL Washington Nurse Input: 09/09/2018; per RN patient is inapproprioate behavior, requires redirection with mood, coaching with meds, he is eating meals. 07/31/2018; per RN patient continues to be inappropriate, with aggressive behavior. Patient is taking selective medication, and require coaching and prompting for compliance. Psychiatric Counselors Present: Hong Dunn Jr., [facility] (Counselor will coordinate with [facility] to determine if the patient can be placed at [facility] to await [facility] hospitalization.), Magdalena Jimenez [facility] Psychiatric Therapist Input: 09/09/2018; patient is as State wait, continues to have behavior issues and require redirection. 07/31/2018; counselor has complete state package and patient is a pending [facility] hospital admission when be is available. Group Spec/RT/OT/FRAGA Present: MAME Hodges (Patient does not attend groups, patient is not appropriate and has difficulty being redirected at this time. August 16, 2018 patient attends select groups), Leandro Pérez, OT, PHILLY Davalos (Attends select groups and is redirectable.) Group Spec/RT/OT/FRAGA Input: 09/09/2018; Per OT/RT patient is not group appropriate. 09/02/18: Pt on isolation, does not attend groups, he can be agitated on unit (4 east), belligerent, intrusive and yelling with significant challenge for redirection. Pt's behaviors are unpredictable. Additional Input: 09/02/18: Pt disposition is [facility] when MRSA resolved and medically cleared. - Documentation Teaching Recipient: Patient
--- NOTE | 2018-09-16 17:25 | P.PNPSY ---
Subjective Remarks: Patient seen in the [place] with nurse Candis and medical student Mariaelena chart reviewed, patient compliant medication albeit somewhat reluctantly. Patient continues somewhat intrusive and grandiose and delusional though showing some insight into his past behaviors on the unit that seem to be somewhat embarrassing to him now he did apologize for them. Otherwise is no significant change in his mental status exam. We continue to await word from [facility]. His MRSA issues appear to have all been resolved Review of Systems All other systems reviewed negative except as stated in HPI Mental Status Examination Appearance: Appropriate Consciousness: Alert Orientation: Person, Place (At least) Motor Activity: Other (No motor abnormalities appreciated) Speech: Pressured, Rapid Language: Perseveration (Mild), Other (A little more focused today) Fund of Knowledge: Inadequate Attention and Concentration: Easily distracted Memory: Impaired Mood: Sad Affect: Labile Thought Process & Associations: Tangential Thought Content: Bizarre thinking, Other (Increasingly paranoid) Hallucination Type: None Delusion Type: Bizarre, Paranoid (Increased) Suicidal Ideation: No Suicidal Plan: No Suicidal Intention: No Homicidal Ideation: No Homicidal Plan: No Homicidal Intention: No Insight: Poor Judgment: Poor Assessment and Plan - Assessment (1) 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 Continue to await word from [facility] Justification for Continued Inpatient Stay: At this time patient with decompensated placed on a lower level of care Discharge Planning: Continue to await word from [facility] Request Healthcare Surrogate/Guardian Advocate?: Yes (2) Schizoaffective disorder Qualifiers: Schizoaffective disorder type: bipolar Qualified Code(s): F25.0 - Schizoaffective disorder, bipolar type
[2018-09-16] MEDS: Divalproex 250 MG ER Tablet PO SCH (20:53)
[2018-09-17] MEDS: Ibuprofen 600 MG Tablet PO PRN ×2 (02:58→12:29)
[2018-09-17] MEDS: Divalproex 500 MG ER Tablet PO SCH (08:25)
[2018-09-17] MEDS: Docusate Sodium 100 MG Capsule PO SCH ×2 (08:25→20:29)
--- NOTE | 2018-09-17 13:49 | P.PNPSY ---
Subjective Remarks: Patient is seen in his room with a sheet covering him to the chin. Patient is seen with nurse Candis, medical student Mariaelena, and Dr. Blue. Patient compliant medication. Patient calmer to me today there is states she is not happy with his situation. He continues to write he be as corpus forms. We will continue to await word from [facility] Review of Systems All other systems reviewed negative except as stated in HPI Mental Status Examination Appearance: Appropriate Consciousness: Alert Orientation: Person, Place (At least) Motor Activity: Other (No motor abnormalities appreciated) Speech: Pressured, Rapid Language: Perseveration (Mild), Other (A little more focused today) Fund of Knowledge: Inadequate Attention and Concentration: Easily distracted Memory: Impaired Mood: Sad Affect: Labile Thought Process & Associations: Tangential Thought Content: Bizarre thinking, Other (Increasingly paranoid) Hallucination Type: None Delusion Type: Bizarre, Paranoid (Increased) Suicidal Ideation: No Suicidal Plan: No Suicidal Intention: No Homicidal Ideation: No Homicidal Plan: No Homicidal Intention: No Insight: Poor Judgment: Poor Assessment and Plan - Assessment (1) 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 Continue to await word from [facility] hospital referral Justification for Continued Inpatient Stay: At this time patient with decompensated placed in a lower level of care Discharge Planning: Continue to await word from [facility] placement Request Healthcare Surrogate/Guardian Advocate?: Yes (2) Schizoaffective disorder Qualifiers: Schizoaffective disorder type: bipolar Qualified Code(s): F25.0 - Schizoaffective disorder, bipolar type
[2018-09-17] MEDS: Divalproex 250 MG ER Tablet PO SCH (20:29)
[2018-09-18] MEDS: Docusate Sodium 100 MG Capsule PO SCH ×2 (09:52→20:17)
[2018-09-18] MEDS: Divalproex 500 MG ER Tablet PO SCH (09:52)
--- NOTE | 2018-09-18 12:03 | P.PNPSY ---
Subjective Remarks: Patient is seen today in his room with nurse Mejia in family practice resident Dr. Serra. Chart reviewed. Patient compliant medication. Patient laying down on his bed with the covers to his chin appearing to be asleep he is not responding to my questions. Though there is fluttering eye movement and body movement that implies he is listening to me. I did share with him his cooperation with medication and the need to find appropriate placement. He did not respond to that either positively or negatively. For now continue treatment he will follow up tomorrow Review of Systems All other systems reviewed negative except as stated in HPI Mental Status Examination Appearance: Appropriate Consciousness: Alert Orientation: Person, Place (At least) Motor Activity: Other (No motor abnormalities appreciated) Speech: Other Language: Other (Patient nonverbal today with me) Fund of Knowledge: Inadequate Attention and Concentration: Easily distracted Memory: Impaired Mood: Sad Affect: Labile Thought Process & Associations: Tangential Thought Content: Bizarre thinking, Other (Increasingly paranoid) Hallucination Type: None Delusion Type: Bizarre, Paranoid (Increased) Suicidal Ideation: No Suicidal Plan: No Suicidal Intention: No Homicidal Ideation: No Homicidal Plan: No Homicidal Intention: No Insight: Poor Judgment: Poor Assessment and Plan - Assessment (1) 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 He is compliant medication. [facility] Justification for Continued Inpatient Stay: At this time patient with decompensated placed in a lower level of care Discharge Planning: To be determined to did await [facility] Request Healthcare Surrogate/Guardian Advocate?: Yes (2) Schizoaffective disorder Qualifiers: Schizoaffective disorder type: bipolar Qualified Code(s): F25.0 - Schizoaffective disorder, bipolar type
--- NOTE | 2018-09-18 12:42 | P.TTN ---
- Patient Problems Problems: 1. Discharge planning 2. Medication compliance 3. Knowledge deficit 4. Lack of coping skills - Progress Toward Goals Provider Present: Dr. Mona Bhakta (Patient remains for further stabilization. Dr. Bhakta will complete paperwork to transfer patient to [facility] to await [facility] hospitalization.), Dr. Jeffery Cody (Patient is new to Dr. Cody, patient needs to be transferred to [facility] as soon as possible to await [facility] hospitalization. Dr. Cody is increasing medication Thorazine, patient remains for further stabilization and is awaiting [facility] hospitalization. August 20, 2018 Dr. Cody is titrating medication Thorazine, patient remains for further stabilization and weight of the [facility] hospital. August 23, 2018 patient remains for further stabilization and is awaiting [facility] for long-term stabilization.), Dr. Wilder Sánchez Provider Input: 09/09/2018; patient continues to be in isolation, requires redirection medications are being monitor for change. 09/02/18: pt continues to present with inconsistent and non-compliant (with medication and with cooperation with staff) behaviors. Pt is on isolation per his MRSA, Thorazine administered per agitation. Pt disposition is [facility] when MRSA resolved and medically cleared. 07/31/2018 per doctor, patient continues to display psychotic and noncompliant behavior. Patient still require medication stabilization. Nurse(s) Present: JAMAL Washington Nurse Input: 09/09/2018; per RN patient is inapproprioate behavior, requires redirection with mood, coaching with meds, he is eating meals. 07/31/2018; per RN patient continues to be inappropriate, with aggressive behavior. Patient is taking selective medication, and require coaching and prompting for compliance. Psychiatric Counselors Present: Hong Dunn Jr., [facility] (Counselor will assist with transferring patient to [facility] to await [facility] hospitalization.), Magdalena Jimenez [facility] Psychiatric Therapist Input: 09/09/2018; patient is as State wait, continues to have behavior issues and require redirection. 07/31/2018; counselor has complete state package and patient is a pending [facility] hospital admission when be is available. Group Spec/RT/OT/FRAGA Present: MAME Hodges (Patient does not attend groups, patient is not appropriate and has difficulty being redirected at this time. August 16, 2018 patient attends select groups), Leandro Pérez, OT, PHILLY Davalos (Patient attends select groups with poor participation in natural tendency to isolate during group activities.) Group Spec/RT/OT/FRAGA Input: 09/09/2018; Per OT/RT patient is not group appropriate. 09/02/18: Pt on isolation, does not attend groups, he can be agitated on unit (4 east), belligerent, intrusive and yelling with significant challenge for redirection. Pt's behaviors are unpredictable. Additional Input: 09/02/18: Pt disposition is [facility] when MRSA resolved and medically cleared. - Documentation Teaching Recipient: Patient
[2018-09-18] MEDS: Ibuprofen 600 MG Tablet PO PRN (19:28)
[2018-09-18] MEDS: Divalproex 250 MG ER Tablet PO SCH (20:18)
[2018-09-19] MEDS: Divalproex 500 MG ER Tablet PO SCH (08:06)
[2018-09-19] MEDS: Docusate Sodium 100 MG Capsule PO SCH ×2 (08:06→20:20)
--- NOTE | 2018-09-19 13:20 | P.PNPSY ---
Subjective Remarks: Patient is seen in his room with medical student Mariaelena and nurse Delma. Patient is somewhat upset because the [employer] tour consultant did not accept his previous corpus form. 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 He then pointed to a picture in a magazine of a model so that this is a woman who looks like his . He was briefly many years ago. Patient compliant medication he denies suicidality. He denies voices but at times he appears to be responding to internal stimuli. We will continue to await word from [facility] placement Review of Systems All other systems reviewed negative except as stated in HPI Mental Status Examination Appearance: Appropriate Consciousness: Alert Orientation: Person, Place (At least), Situation Motor Activity: Other (No motor abnormalities appreciated) Speech: Unremarkable, Pressured (Mildly), Rapid (Mildly) Language: Perseveration, Other (Patient nonverbal today with me) Fund of Knowledge: Inadequate Attention and Concentration: Easily distracted Memory: Impaired Mood: Sad, Irritable Affect: Other (Increased range and intensity) Thought Process & Associations: Tangential Thought Content: Bizarre thinking, Other (Increasingly paranoid) Hallucination Type: None Delusion Type: Bizarre, Paranoid (Increased) Suicidal Ideation: No Suicidal Plan: No Suicidal Intention: No Homicidal Ideation: No Homicidal Plan: No Homicidal Intention: No Insight: Poor Judgment: Poor Assessment and Plan - Assessment (1) 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 Continue to await word from [facility] Justification for Continued Inpatient Stay: At this time patient with decompensated placed in a lower level of care Request Healthcare Surrogate/Guardian Advocate?: Yes (2) Schizoaffective disorder Qualifiers: Schizoaffective disorder type: bipolar Qualified Code(s): F25.0 - Schizoaffective disorder, bipolar type
[2018-09-19] MEDS: Aluminum/Magnesium/Simethacone Susp 30 ML UDC PO PRN (17:54)
[2018-09-19] MEDS: Divalproex 250 MG ER Tablet PO SCH (20:20)
[2018-09-20] MEDS: Aluminum/Magnesium/Simethacone Susp 30 ML UDC PO PRN (02:12)
[2018-09-20] MEDS: Divalproex 500 MG ER Tablet PO SCH (09:22)
[2018-09-20] MEDS: Docusate Sodium 100 MG Capsule PO SCH ×2 (09:22→20:44)
--- NOTE | 2018-09-20 10:22 | P.PNPSY ---
Subjective Remarks: Patient seen in his room with nurse Nina and medical student Mariaelena. Chart reviewed. Patient compliant medication. Patient calm more cooperative today showing less anger and irritability towards me. Thus complaining of some swelling and pain under his left axilla. Appears to be be a Bartholin abscess developing a lot of hospitalist consult was to assess this. Otherwise continue medications no change. Patient remains delusional and somewhat grandiose Review of Systems All other systems reviewed negative except as stated in HPI Mental Status Examination Appearance: Appropriate Consciousness: Alert Orientation: Person, Place (At least), Situation Motor Activity: Other (No motor abnormalities appreciated) Speech: Unremarkable, Pressured (Mildly), Rapid (Mildly) Language: Perseveration, Other (Patient nonverbal today with me) Fund of Knowledge: Inadequate Attention and Concentration: Easily distracted Memory: Impaired Mood: Sad (Somewhat improved), Irritable (Somewhat calmer) Affect: Other (Increased range and intensity) Thought Process & Associations: Tangential Thought Content: Bizarre thinking, Other (Increasingly paranoid) Hallucination Type: None Delusion Type: Bizarre, Paranoid (Increased) Suicidal Ideation: No Suicidal Plan: No Suicidal Intention: No Homicidal Ideation: No Homicidal Plan: No Homicidal Intention: No Insight: Poor Judgment: Poor Assessment and Plan - Assessment (1) 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 Also complains of swelling under his left axilla there is a hospice consult was to assess. Otherwise continue to [facility] word from [facility] Justification for Continued Inpatient Stay: At this time patient would decompensated placed in a lower level of care Discharge Planning: Continue to await word from [facility] Request Healthcare Surrogate/Guardian Advocate?: Yes (2) Schizoaffective disorder Qualifiers: Schizoaffective disorder type: bipolar Qualified Code(s): F25.0 - Schizoaffective disorder, bipolar type
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
[2018-09-20] MEDS: Divalproex 250 MG ER Tablet PO SCH (20:45)
[2018-09-21] MEDS: Docusate Sodium 100 MG Capsule PO SCH ×2 (09:41→20:24)
[2018-09-21] MEDS: Divalproex 500 MG ER Tablet PO SCH (09:43)
--- NOTE | 2018-09-21 16:28 | P.PNPSY ---
Subjective Remarks: Reviewed electronic medical records and discussed case with staff. Follow-up was conducted in the patient's room with JAMAL Hartmann present. Patient was found lying awake in bed. He reports that he slept pretty good last night and that his mood is "okay". No complaints with his appetite as well. He does report that he wrote an autobiography about "the pyramids, UFOs, and the [id number] conspiracy as well as a whole bunch of other stuff". Mood is good and his affect is euthymic. He interacts appropriately and is cooperative throughout the follow-up. Mental Status Examination Appearance: Appropriate Consciousness: Alert Orientation: Person, Place (At least), Situation Motor Activity: Other (No motor abnormalities appreciated) Speech: Unremarkable, Pressured (Mildly), Rapid (Mildly) Language: Perseveration, Other (Patient nonverbal today with me) Fund of Knowledge: Inadequate Attention and Concentration: Easily distracted Memory: Impaired Mood: Sad (Somewhat improved), Irritable (Somewhat calmer) Affect: Other (Increased range and intensity) Thought Process & Associations: Tangential Thought Content: Bizarre thinking, Other (Increasingly paranoid) Hallucination Type: None Delusion Type: Bizarre, Paranoid (Increased) Suicidal Ideation: No Suicidal Plan: No Suicidal Intention: No Homicidal Ideation: No Homicidal Plan: No Homicidal Intention: No Insight: Poor Judgment: Poor Assessment and Plan - Assessment (1) 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 Continue with current treatment plan. Justification for Continued Inpatient Stay: Moving this patient to a less restrictive environment would likely result in decompensation. Request Healthcare Surrogate/Guardian Advocate?: Yes
[2018-09-21] MEDS: Divalproex 250 MG ER Tablet PO SCH (20:24)
[2018-09-22] MEDS: Divalproex 500 MG ER Tablet PO SCH (08:14)
[2018-09-22] MEDS: Docusate Sodium 100 MG Capsule PO SCH ×2 (08:14→20:48)
--- NOTE | 2018-09-22 11:20 | P.PNPSY ---
Subjective Remarks: Reviewed electronic medical records and discussed case with staff. Follow-up was conducted in the visiting area with JAMAL Hartmann present. Patient appears calmer than previous visits. He is watching television and not crying. He feels that his medications are "too high" and make him tired. He continues to ramble about UFOs. He is eating and sleeping well. Nursing identified that he is waiting for a bed in the [facility]. Review of Systems All other systems reviewed negative except as stated in HPI Mental Status Examination Appearance: Appropriate Consciousness: Alert Orientation: Person, Place (At least), Situation Motor Activity: Other (No motor abnormalities appreciated) Speech: Unremarkable, Pressured (Mildly), Rapid (Mildly) Language: Perseveration, Other (Patient nonverbal today with me) Fund of Knowledge: Inadequate Attention and Concentration: Easily distracted Memory: Impaired Mood: Sad (Somewhat improved), Irritable (Somewhat calmer) Affect: Other (Increased range and intensity) Thought Process & Associations: Tangential Thought Content: Bizarre thinking, Other (Increasingly paranoid) Hallucination Type: None Delusion Type: Bizarre, Paranoid (Increased) Suicidal Ideation: No Suicidal Plan: No Suicidal Intention: No Homicidal Ideation: No Homicidal Plan: No Homicidal Intention: No Insight: Poor Judgment: Poor Assessment and Plan - Assessment (1) Schizoaffective disorder, bipolar type Code(s): F25.0 - Schizoaffective disorder, bipolar type Status: Acute (2) 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 Continue with current treatment plan. Justification for Continued Inpatient Stay: Moving patient to a less restricted environment may result in her decompensation. Request Healthcare Surrogate/Guardian Advocate?: Yes
[2018-09-22] MEDS ORDERED: Chlorhexidine 4% Topical 120 APPLIC/120 ML Bottle TOPICAL ONE (15:15)
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
[2018-09-22] MEDS: Divalproex 250 MG ER Tablet PO SCH (20:48)
[2018-09-23] MEDS: Divalproex 500 MG ER Tablet PO SCH (08:35)
[2018-09-23] MEDS: Docusate Sodium 100 MG Capsule PO SCH ×2 (08:36→20:25)
--- NOTE | 2018-09-23 15:23 | P.PNPSY ---
Subjective Remarks: Patient seen in his room with nurse Candis., Chart reviewed, patient showing noncompliance with medication. He is becoming more more irritable becoming more intrusive with conversations with his brother screaming and yelling on the phone. Today patient is quite angry with me also asking what was his number on the list for the [facility]. I stated I did not know but it was a little number. We then continued screaming at me and saying some disrespectful things concerning my weight and my eating habits for now continue treatment we continue to await word from [facility] and also from [facility] for possible transfer there while he awaits placement at the [facility] Review of Systems All other systems reviewed negative except as stated in HPI Mental Status Examination Appearance: Appropriate Consciousness: Alert Orientation: Person, Place (At least), Situation Motor Activity: Other (No motor abnormalities appreciated) Speech: Pressured (Mildly), Rapid (Mildly), Other (Somewhat disorganized) Language: Perseveration, Other (Patient nonverbal today with me) Fund of Knowledge: Inadequate Attention and Concentration: Easily distracted Memory: Impaired Mood: Angry, Anxious, Irritable (Somewhat calmer) Affect: Other (Marked increased range and intensity) Thought Process & Associations: Disorganized, Tangential Thought Content: Bizarre thinking, Other (Increasingly paranoid) Hallucination Type: None Delusion Type: Bizarre, Paranoid (Increased) Suicidal Ideation: No Suicidal Plan: No Suicidal Intention: No Homicidal Ideation: No Homicidal Plan: No Homicidal Intention: No Insight: Poor Judgment: Poor Assessment and Plan - Assessment (1) 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 Showing increased noncompliance medication anger towards me Justification for Continued Inpatient Stay: At this time patient with decompensated placed on a lower level of care Discharge Planning: To mutilate word from [facility] placement and from [facility] Request Healthcare Surrogate/Guardian Advocate?: Yes (2) Schizoaffective disorder Qualifiers: Schizoaffective disorder type: bipolar Qualified Code(s): F25.0 - Schizoaffective disorder, bipolar type
[2018-09-23] MEDS: Divalproex 250 MG ER Tablet PO SCH (20:26)
[2018-09-24] MEDS: Docusate Sodium 100 MG Capsule PO SCH ×2 (08:41→21:03)
[2018-09-24] MEDS: Divalproex 500 MG ER Tablet PO SCH (08:41)
--- NOTE | 2018-09-24 11:18 | P.PNPSY ---
Subjective Remarks: Patient seen today in his room with nurse Chanda, chart reviewed, patient compliant with medicine today albeit somewhat reluctantly. Patient calm today did apologize for his behavior yesterday. Today for the first time we did openly discusses [facility] referral. He remembers being there in the past up to 6 months at a time. He appears resigned to going there. For now continue treatment Review of Systems All other systems reviewed negative except as stated in HPI Mental Status Examination Appearance: Appropriate Consciousness: Alert Orientation: Person, Place (At least), Situation Motor Activity: Other (No motor abnormalities appreciated) Speech: Pressured (Mildly), Rapid (Mildly) Language: Perseveration (Improved today) Fund of Knowledge: Inadequate Attention and Concentration: Easily distracted Memory: Impaired Mood: Angry (Calmer today), Anxious (Calmer today), Irritable (Calmer today ) Affect: Other (Improved range and affect) Thought Process & Associations: Disorganized, Tangential Thought Content: Bizarre thinking, Other (Increasingly paranoid) Hallucination Type: None Delusion Type: Paranoid (Increased) Suicidal Ideation: No Suicidal Plan: No Suicidal Intention: No Homicidal Ideation: No Homicidal Plan: No Homicidal Intention: No Insight: Poor Judgment: Poor Assessment and Plan - Assessment (1) 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 Code(s): S06.9X9S - Unspecified intracranial injury with loss of consciousness of unspecified duration, sequela; F02.81 - Dementia in other diseases classified elsewhere with behavioral disturbance Status: Acute (2) Schizoaffective disorder Code(s): F25.9 - Schizoaffective disorder, unspecified Status: Acute - Plan Plan: Patient remains psychotic paranoid somewhat delusional though softer today, did apologize for his behavior yesterday, compliant medication, appears to be processing the transfer of the [facility] in the future Justification for Continued Inpatient Stay: At this point patient with decompensated placed in a lower level of care Discharge Planning: Continue to await word from [facility] referral Request Healthcare Surrogate/Guardian Advocate?: Yes (2) Schizoaffective disorder Qualifiers: Schizoaffective disorder type: bipolar Qualified Code(s): F25.0 - Schizoaffective disorder, bipolar type
[2018-09-24 18:35] VITALS: O2SAT 97
[2018-09-24] MEDS: Divalproex 250 MG ER Tablet PO SCH (21:03)
[2018-09-24] MEDS: Ibuprofen 600 MG Tablet PO PRN (22:46)
[2018-09-25] MEDS: Divalproex 500 MG ER Tablet PO SCH (08:36)
[2018-09-25] MEDS: Docusate Sodium 100 MG Capsule PO SCH ×2 (08:36→20:54)
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
[2018-09-25] MEDS: Divalproex 250 MG ER Tablet PO SCH (20:55)
[2018-09-25] MEDS: Ibuprofen 600 MG Tablet PO PRN (21:16)
[2018-09-26] MEDS: Docusate Sodium 100 MG Capsule PO SCH (08:24)
[2018-09-26] MEDS: Divalproex 500 MG ER Tablet PO SCH (08:24)
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
[2018-09-26 16:55] VITALS: BP 120/82; PULSE 81; RESP 17; TEMP 97.7
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
== END 2018-09-26 17:31 | disposition short-term general hospital (02) ==
LOC: H4EA 12:05 → H270 07-18 22:43 → H4EA 08-23 16:18 → H270 09-10 12:56
PROVIDERS: ADMIT Psychiatry & Neurology Psychiatry; ATTEND Psychiatry & Neurology Psychiatry